=== PATIENT | female | born 1965 | race Caucasian/White ===

== ENCOUNTER 2017-01-12 14:24 | Inpatient (IN) | payer MEDICAID ==
[~2017-01-12] VITALS: Ht 157.5 cm; Wt 56.6 kg
[~2017-01-12 14:24] MED LIST: ASP81EC PO; ENA2.5T PO; FURO20TA3 PO; LORA2TAB10 PO; METO50TA7 PO; POTA20TA53 PO; SIMV10TA84 PO; SPIR25TA88 PO
[2017-01-12 16:18] LABS: Basophils # (auto) 0.1 uL; Basophils % (auto) 0.6 % (0.0-2.0); Eosinophils # (auto) 0.1 uL; Hematocrit 40.6 % (36.0-46.0); Hemoglobin 12.7 g/dL (12.2-16.2); Lymphocytes # (auto) 1.6 uL; Lymphocytes % (auto) 18.2 % (10.0-50.0); Mean Corpuscular Hemoglobin 27.9 pg (28.0-32.0); Mean Corpuscular Hgb Conc. 31.4 g/dL (32.0-36.0); Mean Corpuscular Volume 88.7 fL (80.0-100.0); Mean Platelet Volume 8.8 fL (7.4-10.4); Monocytes # (auto) 0.6 uL; Monocytes % (auto) 6.4 % (0.0-12.0); Neutrophils # (auto) 6.5 uL; Neutrophils % (auto) 73.8 % (37.0-80.0); Platelet Count (auto) 322 10^3/uL (140-450); Red Cell Distribution Width 17.6 % (11.6-16.0); White Blood Cell 8.8 10^3/uL (4.4-10.8)
[2017-01-12 16:49] LABS: Albumin 3.3 g/dL (3.4-5.0); BUN/Creatinine Ratio 21.7; Bilirubin, Total 0.7 mg/dL (0.2-1.0); Calcium 8.6 mg/dL (8.5-10.1); Potassium 4.2 mmol/L (3.5-5.1); Total Protein 7.1 g/dL (6.4-8.2)
[2017-01-12 22:53] LABS: B-Type Natriuretic Peptide 3648.64 pg/mL (0-100); Temperature: 22.9 C (20.0-25.0)
[2017-01-12] MEDS ORDERED: FUROSEMIDE 20 MG/2 ML VIAL IV ONE (23:15)
[2017-01-13 02:19] LABS: Urine RBC None Seen /hpf (0 - 4)
[2017-01-13 02:37] LABS: Urine Bilirubin Negative (Negative); Urine Blood Negative /uL (Negative); Urine Color Yellow (Yellow); Urine Glucose Normal (Normal); Urine Ketone Negative (Negative); Urine Nitrite Negative (Negative); Urine Squamous Epithelial Cell FEW /hpf (<5); Urine Urobilinogen Normal (Negative)
[2017-01-13] MEDS ORDERED: HYDROcodone-ACET 10/325MG TAB PO ONE (03:30)
[2017-01-13] MEDS ORDERED: CARV3.1213 PO ×2 (04:40)
[2017-01-13] MEDS ORDERED: SPIR25TA89 PO ×2 (04:40)
[2017-01-13] MEDS ORDERED: SIMV10TA84 PO ×2 (04:40)
[2017-01-13] MEDS ORDERED: POLY335015 PO ×2 (04:40)
[2017-01-13] MEDS ORDERED: FURO40TA4 PO ×2 (04:40)
[2017-01-13] MEDS ORDERED: ASPI81CH43 PO ×2 (04:40)
[2017-01-13] MEDS ORDERED: POTA10SO11 PO (04:40)
[2017-01-13] MEDS ORDERED: ENA2.5T PO (04:40)
[2017-01-13] MEDS ORDERED: CITA10TA70 PO ×2 (04:40)
[2017-01-13] MEDS ORDERED: ACETAMINOPHEN 500 MG TAB PO PRN (08:15)
[2017-01-13] MEDS ORDERED: MORPHINE SULF INJ 2 MG/ML SYRINGE 1ML IV PRN (08:15)
[2017-01-13] MEDS ORDERED: LORazepam 0.5 MG TAB PO PRN (08:15)
[2017-01-13] MEDS ORDERED: PROMETHAZINE HCL 25 MG/ML 1ML IV PRN (08:15)
[2017-01-13] MEDS ORDERED: LACTULOSE 20Gm/30ML SOLN PO PRN (08:15)
[2017-01-13] MEDS ORDERED: NITROGLYCERIN 0.4 MG SL TAB SL PRN (08:15)
[2017-01-13] MEDS ORDERED: DEXTROSE (50%) 50ML SYRG IV PRN (08:15)
[2017-01-13] MEDS ORDERED: cefTRIAXone 1GM/50ML D5W 50 ML IV ONE (08:15)
[2017-01-13] MEDS ORDERED: LORAZEPAM PO SCH (08:15)
[2017-01-13] MEDS ORDERED: POLYETHYLENE GLYCOL 17GM PWDR PO PRN (09:15)
[2017-01-13 09:22] LABS: Partial Thromboplastin Time 19.8 sec (22.64-33.71)
[2017-01-13 09:31] LABS: INR 1.22 (0.9-1.15); Prothrombin Time 12.6 sec (9.37-12.3)
[2017-01-13] MEDS: NITROGLYCERIN 0.2MG/HR TOPICAL PATCH TD SCH (10:49)
[2017-01-13] MEDS: SPIRONOLACTONE 25 MG TAB PO SCH (10:49)
[2017-01-13] MEDS: CITALOPRAM HYDROBR 20 MG TAB PO SCH (10:49)
[2017-01-13] MEDS: ASPirin 81 mg TAB PO SCH (10:49)
[2017-01-13] MEDS: ENALAPRIL MALEATE 2.5 MG TAB PO SCH (10:50)
[2017-01-13] MEDS: ENOXAPARIN SOD 40 MG/0.4 ML SYRINGE SC SCH (10:50)
[2017-01-13] MEDS: CARVEDILOL 3.125 MG TAB PO SCH ×2 (10:51→22:41)
[2017-01-13] MEDS: FAMOTIDINE 20 MG TAB PO SCH ×2 (10:51→22:41)
[2017-01-13] MEDS: POTASSIUM CHL 20 Meq TABLET PO SCH (10:51)
[2017-01-13] MEDS: FUROSEMIDE 40 MG/4 ML VIAL IV SCH (10:55)
[2017-01-13 11:22] LABS: Amylase 32 U/L (25-115)
[2017-01-13] MEDS: InsuLIN REG 1unit/0.01ml Soln (100units/ml) SC SCH ×3 (11:30→22:00)
[2017-01-13] MEDS: ACCU-CHEK COMFORT CURVE STRIP VI SCH ×3 (11:37→22:00)
[2017-01-13] MEDS: SODIUM CHLOR 0.9% PF (SALINE LOCK) 10ML VIAL IV SCH ×2 (13:23→22:42)
[2017-01-13 15:03] VITALS: BP 111/77
[2017-01-13 16:44] VITALS: BP 100/57
[2017-01-13 21:30] VITALS: BP 109/76
[2017-01-13] MEDS: HYDROcodone-ACET 5/325MG TAB PO PRN (22:41)
[2017-01-13] MEDS: PRAVASTATIN SODIUM 20 MG TAB PO SCH (22:41)
[2017-01-13] MEDS: TEMAZEPAM 15 MG CAP PO PRN (22:41)
[2017-01-14 05:37] VITALS: BP 109/74
[2017-01-14 06:09] LABS: Basophils # (auto) 0 uL; Basophils % (auto) 0.8 % (0.0-2.0); Eosinophils # (auto) 0.2 uL; Eosinophils % (auto) 2.7 % (0.0-7.0); Hematocrit 40.9 % (36.0-46.0); Hemoglobin 12.7 g/dL (12.2-16.2); Lymphocytes # (auto) 2.1 uL; Lymphocytes % (auto) 31.6 % (10.0-50.0); Mean Corpuscular Hemoglobin 27.3 pg (28.0-32.0); Monocytes # (auto) 0.6 uL; Monocytes % (auto) 8.6 % (0.0-12.0); Neutrophils # (auto) 3.7 uL; Neutrophils % (auto) 56.3 % (37.0-80.0); Platelet Count (auto) 308 10^3/uL (140-450); Red Cell Distribution Width 17.7 % (11.6-16.0); White Blood Cell 6.5 10^3/uL (4.4-10.8)
[2017-01-14 06:33] LABS: Albumin 2.9 g/dL (3.4-5.0); BUN/Creatinine Ratio 28.3; Bilirubin, Total 0.5 mg/dL (0.2-1.0); Calcium 8.5 mg/dL (8.5-10.1); Potassium 4.1 mmol/L (3.5-5.1); Total Protein 6.5 g/dL (6.4-8.2)
[2017-01-14] MEDS: ACCU-CHEK COMFORT CURVE STRIP VI SCH ×4 (06:59→22:00)
[2017-01-14] MEDS: InsuLIN REG 1unit/0.01ml Soln (100units/ml) SC SCH ×4 (06:59→22:00)
[2017-01-14 07:09] LABS: B-Type Natriuretic Peptide 2553.5 pg/mL (0-100); Temperature: 22.2 C (20.0-25.0)
[2017-01-14] MEDS: SODIUM CHLOR 0.9% PF (SALINE LOCK) 10ML VIAL IV SCH ×3 (07:21→22:15)
[2017-01-14] MEDS: cefTRIAXone 1GM/50ML D5W 50 ML IV SCH (08:26)
[2017-01-14 09:29] VITALS: BP 108/69
[2017-01-14] MEDS: FUROSEMIDE 40 MG/4 ML VIAL IV SCH (09:47)
[2017-01-14] MEDS: ASPirin 81 mg TAB PO SCH (09:47)
[2017-01-14] MEDS: SPIRONOLACTONE 25 MG TAB PO SCH (09:48)
[2017-01-14] MEDS: ENOXAPARIN SOD 40 MG/0.4 ML SYRINGE SC SCH ×2 (09:48→09:58)
[2017-01-14] MEDS: POTASSIUM CHL 20 Meq TABLET PO SCH (09:48)
[2017-01-14] MEDS: FAMOTIDINE 20 MG TAB PO SCH ×2 (09:48→22:11)
[2017-01-14] MEDS: CITALOPRAM HYDROBR 20 MG TAB PO SCH (09:49)
[2017-01-14] MEDS: CARVEDILOL 3.125 MG TAB PO SCH ×2 (09:51→22:15)
[2017-01-14] MEDS: ENALAPRIL MALEATE 2.5 MG TAB PO SCH (09:51)
[2017-01-14] MEDS: NITROGLYCERIN 0.2MG/HR TOPICAL PATCH TD SCH (09:52)
[2017-01-14 13:00] VITALS: BP 105/63
[2017-01-14 16:28] VITALS: BP 104/75
[2017-01-14] MEDS: MORPHINE SULF INJ 2 MG/ML SYRINGE 1ML IV PRN ×2 (17:24→22:25)
[2017-01-14 22:00] VITALS: BP 120/83
[2017-01-14] MEDS: PRAVASTATIN SODIUM 20 MG TAB PO SCH (22:11)
[2017-01-15 05:00] VITALS: BP 112/72
[2017-01-15] MEDS: SODIUM CHLOR 0.9% PF (SALINE LOCK) 10ML VIAL IV SCH ×3 (05:52→22:21)
[2017-01-15] MEDS: InsuLIN REG 1unit/0.01ml Soln (100units/ml) SC SCH ×4 (06:14→22:00)
[2017-01-15] MEDS: ACCU-CHEK COMFORT CURVE STRIP VI SCH ×4 (06:15→22:00)
[2017-01-15 09:00] VITALS: BP 115/81
[2017-01-15] MEDS: cefTRIAXone 1GM/50ML D5W 50 ML IV SCH (09:55)
[2017-01-15] MEDS: ENOXAPARIN SOD 40 MG/0.4 ML SYRINGE SC SCH (09:56)
[2017-01-15] MEDS: NITROGLYCERIN 0.2MG/HR TOPICAL PATCH TD SCH (09:56)
[2017-01-15] MEDS: CITALOPRAM HYDROBR 20 MG TAB PO SCH (09:56)
[2017-01-15] MEDS: POTASSIUM CHL 20 Meq TABLET PO SCH (09:56)
[2017-01-15] MEDS: FUROSEMIDE 40 MG/4 ML VIAL IV SCH (09:56)
[2017-01-15] MEDS: SPIRONOLACTONE 25 MG TAB PO SCH (09:57)
[2017-01-15] MEDS: ENALAPRIL MALEATE 2.5 MG TAB PO SCH (09:57)
[2017-01-15] MEDS: FAMOTIDINE 20 MG TAB PO SCH ×2 (09:57→22:18)
[2017-01-15] MEDS: ASPirin 81 mg TAB PO SCH (09:58)
[2017-01-15] MEDS: CARVEDILOL 3.125 MG TAB PO SCH ×2 (09:58→22:18)
[2017-01-15 13:00] VITALS: BP 99/66
[2017-01-15 17:00] VITALS: BP 121/81
[2017-01-15 22:00] VITALS: BP 118/64
[2017-01-15] MEDS: PRAVASTATIN SODIUM 20 MG TAB PO SCH (22:18)
[2017-01-15] MEDS: MORPHINE SULF INJ 2 MG/ML SYRINGE 1ML IV PRN (22:20)
[2017-01-16 05:00] VITALS: BP 108/65
[2017-01-16 06:22] LABS: Basophils # (auto) 0 uL; Basophils % (auto) 0.5 % (0.0-2.0); Eosinophils # (auto) 0.1 uL; Eosinophils % (auto) 1.5 % (0.0-7.0); Lymphocytes # (auto) 1.8 uL; Lymphocytes % (auto) 20.5 % (10.0-50.0); Mean Corpuscular Hemoglobin 27.4 pg (28.0-32.0); Mean Corpuscular Volume 88.4 fL (80.0-100.0); Monocytes # (auto) 0.8 uL; Monocytes % (auto) 8.8 % (0.0-12.0); Neutrophils # (auto) 6.2 uL; Neutrophils % (auto) 68.7 % (37.0-80.0); Platelet Count (auto) 346 10^3/uL (140-450); Red Cell Distribution Width 16.7 % (11.6-16.0)
[2017-01-16 06:59] LABS: Albumin 2.9 g/dL (3.4-5.0); Bilirubin, Total 0.3 mg/dL (0.2-1.0); Calcium 8.3 mg/dL (8.5-10.1); Potassium 4.3 mmol/L (3.5-5.1); Total Protein 6.6 g/dL (6.4-8.2)
[2017-01-16] MEDS: InsuLIN REG 1unit/0.01ml Soln (100units/ml) SC SCH ×4 (07:00→22:00)
[2017-01-16] MEDS: ACCU-CHEK COMFORT CURVE STRIP VI SCH ×4 (07:00→22:00)
[2017-01-16] MEDS: SODIUM CHLOR 0.9% PF (SALINE LOCK) 10ML VIAL IV SCH ×3 (07:02→22:00)
[2017-01-16] MEDS: Boost Glucose Control 8 Ounces PO SCH ×3 (08:00→18:00)
[2017-01-16 09:00] VITALS: BP 99/60
[2017-01-16] MEDS: SPIRONOLACTONE 25 MG TAB PO SCH (10:00)
[2017-01-16] MEDS: NITROGLYCERIN 0.2MG/HR TOPICAL PATCH TD SCH (10:00)
[2017-01-16] MEDS: ENALAPRIL MALEATE 2.5 MG TAB PO SCH (10:00)
[2017-01-16 10:14] VITALS: BP 104/69
[2017-01-16] MEDS: FAMOTIDINE 20 MG TAB PO SCH ×2 (10:22→22:56)
[2017-01-16] MEDS: CITALOPRAM HYDROBR 20 MG TAB PO SCH (10:22)
[2017-01-16] MEDS: ASPirin 81 mg TAB PO SCH (10:22)
[2017-01-16] MEDS: POTASSIUM CHL 20 Meq TABLET PO SCH (10:22)
[2017-01-16] MEDS: CARVEDILOL 3.125 MG TAB PO SCH ×2 (10:22→22:57)
[2017-01-16] MEDS: ENOXAPARIN SOD 40 MG/0.4 ML SYRINGE SC SCH (10:22)
[2017-01-16] MEDS: FUROSEMIDE 40 MG/4 ML VIAL IV SCH (10:23)
[2017-01-16] MEDS: cefTRIAXone 1GM/50ML D5W 50 ML IV SCH (10:23)
[2017-01-16 13:00] VITALS: BP 106/64
[2017-01-16 17:00] VITALS: BP 102/61
[2017-01-16 22:00] VITALS: BP 123/77
[2017-01-16] MEDS: TEMAZEPAM 15 MG CAP PO PRN (22:56)
[2017-01-16] MEDS: PRAVASTATIN SODIUM 20 MG TAB PO SCH (22:58)
[2017-01-17 05:00] VITALS: BP 123/79
[2017-01-17] MEDS: SODIUM CHLOR 0.9% PF (SALINE LOCK) 10ML VIAL IV SCH ×3 (06:00→21:38)
[2017-01-17 06:20] LABS: Basophils # (auto) 0 uL; Basophils % (auto) 0.4 % (0.0-2.0); Eosinophils # (auto) 0.2 uL; Eosinophils % (auto) 2.4 % (0.0-7.0); Hematocrit 42.1 % (36.0-46.0); Hemoglobin 13.9 g/dL (12.2-16.2); Lymphocytes # (auto) 2.3 uL; Lymphocytes % (auto) 24.6 % (10.0-50.0); Mean Corpuscular Hemoglobin 28.5 pg (28.0-32.0); Mean Corpuscular Hgb Conc. 32.9 g/dL (32.0-36.0); Mean Corpuscular Volume 86.7 fL (80.0-100.0); Mean Platelet Volume 8.8 fL (7.4-10.4); Monocytes # (auto) 0.8 uL; Monocytes % (auto) 8.7 % (0.0-12.0); Neutrophils % (auto) 63.9 % (37.0-80.0); Platelet Count (auto) 371 10^3/uL (140-450); Red Cell Distribution Width 16.9 % (11.6-16.0); White Blood Cell 9.4 10^3/uL (4.4-10.8)
[2017-01-17 06:33] LABS: INR 1.14 (0.9-1.15); Prothrombin Time 11.7 sec (9.37-12.3)
[2017-01-17 06:49] LABS: Potassium 4.1 mmol/L (3.5-5.1)
[2017-01-17 06:55] LABS: Calcium 8.3 mg/dL (8.5-10.1)
[2017-01-17 07:00] LABS: Bilirubin, Total 0.3 mg/dL (0.2-1.0); Total Protein 7.1 g/dL (6.4-8.2)
[2017-01-17] MEDS: InsuLIN REG 1unit/0.01ml Soln (100units/ml) SC SCH ×2 (07:00→11:30)
[2017-01-17] MEDS ORDERED: IODIXANOL 320MG/ML 100ML BTL IV ONE (07:15)
[2017-01-17] MEDS ORDERED: LIDOCAINE 2%HCL (LOCAL ANESTH.) INJ 20ML MDV ONE (07:15)
[2017-01-17] MEDS: ACCU-CHEK COMFORT CURVE STRIP VI SCH ×2 (07:49→11:30)
[2017-01-17] MEDS: Boost Glucose Control 8 Ounces PO SCH ×3 (08:00→18:00)
[2017-01-17 09:00] VITALS: BP 116/78
[2017-01-17] MEDS: ASPirin 81 mg TAB PO SCH (09:58)
[2017-01-17] MEDS: ENOXAPARIN SOD 40 MG/0.4 ML SYRINGE SC SCH (09:58)
[2017-01-17] MEDS: cefTRIAXone 1GM/50ML D5W 50 ML IV SCH (09:59)
[2017-01-17] MEDS: FUROSEMIDE 40 MG/4 ML VIAL IV SCH (09:59)
[2017-01-17] MEDS: SPIRONOLACTONE 25 MG TAB PO SCH (10:00)
[2017-01-17] MEDS: NITROGLYCERIN 0.2MG/HR TOPICAL PATCH TD SCH (10:00)
[2017-01-17] MEDS: POTASSIUM CHL 20 Meq TABLET PO SCH (10:00)
[2017-01-17] MEDS: ENALAPRIL MALEATE 2.5 MG TAB PO SCH (10:01)
[2017-01-17] MEDS: CARVEDILOL 3.125 MG TAB PO SCH ×2 (10:01→21:37)
[2017-01-17] MEDS: FAMOTIDINE 20 MG TAB PO SCH ×2 (10:01→21:38)
[2017-01-17] MEDS: CITALOPRAM HYDROBR 20 MG TAB PO SCH (10:01)
[2017-01-17] MEDS ORDERED: ANGIOMAX 250 MG VIAL IV ONE (11:15)
[2017-01-17] MEDS ORDERED: VERAPAMIL 2.5MG/ML INJ 2ML VIAL IV ONE (11:15)
[2017-01-17] MEDS ORDERED: MIDAZOLAM HCL 1MG/1ML-2 ML VIAL ONE (11:16)
[2017-01-17] MEDS ORDERED: fentaNYL CITRATE 100 MCG/2 ML VL ONE (11:16)
[2017-01-17] MEDS ORDERED: EPTIFIBATIDE INJ (2MG/ML) 10ML VIAL IV ONE (11:17)
[2017-01-17] MEDS ORDERED: SODIUM CHL 0.9% 50 ML ONE (11:17)
[2017-01-17] MEDS ORDERED: ADENOSINE 90 MG/30 ML INJ IV ONE (11:35)
[2017-01-17 13:00] VITALS: BP 107/75
[2017-01-17 17:00] VITALS: BP 105/57
[2017-01-17] MEDS: HYDROcodone-ACET 5/325MG TAB PO PRN (20:49)
[2017-01-17] MEDS: PRAVASTATIN SODIUM 20 MG TAB PO SCH (21:38)
[2017-01-17] MEDS: TEMAZEPAM 15 MG CAP PO PRN (21:38)
[2017-01-17 22:00] VITALS: BP 108/71
[2017-01-18 05:00] VITALS: BP 112/56
[2017-01-18] MEDS: SODIUM CHLOR 0.9% PF (SALINE LOCK) 10ML VIAL IV SCH ×2 (06:00→14:00)
[2017-01-18 06:29] LABS: BUN/Creatinine Ratio 27.7; Calcium 8.8 mg/dL (8.5-10.1); Potassium 4.2 mmol/L (3.5-5.1)
[2017-01-18 06:57] LABS: B-Type Natriuretic Peptide 1078.88 pg/mL (0-100); Temperature: 22.5 C (20.0-25.0)
[2017-01-18] MEDS: Boost Glucose Control 8 Ounces PO SCH ×2 (08:00→12:00)
[2017-01-18 09:00] VITALS: BP 105/71
[2017-01-18] MEDS ORDERED: ENA2.5T PO ×2 (09:12)
[2017-01-18] MEDS ORDERED: POTA20TA53 PO ×2 (09:20)
[2017-01-18] MEDS: FUROSEMIDE 40 MG/4 ML VIAL IV SCH (09:48)
[2017-01-18] MEDS: POTASSIUM CHL 20 Meq TABLET PO SCH (09:48)
[2017-01-18] MEDS: SPIRONOLACTONE 25 MG TAB PO SCH (09:48)
[2017-01-18] MEDS: CITALOPRAM HYDROBR 20 MG TAB PO SCH (09:48)
[2017-01-18] MEDS: FAMOTIDINE 20 MG TAB PO SCH (09:49)
[2017-01-18] MEDS: CARVEDILOL 3.125 MG TAB PO SCH (09:49)
[2017-01-18] MEDS: ASPirin 81 mg TAB PO SCH (09:49)
[2017-01-18] MEDS: ENOXAPARIN SOD 40 MG/0.4 ML SYRINGE SC SCH (09:50)
[2017-01-18] MEDS: NITROGLYCERIN 0.2MG/HR TOPICAL PATCH TD SCH (09:50)
[2017-01-18] MEDS: ENALAPRIL MALEATE 2.5 MG TAB PO SCH (09:50)
[2017-01-18 13:00] VITALS: BP 111/69
[2017-01-18 13:57] VITALS: BP 105/71
== END 2017-01-18 16:10 | disposition home or self-care (01) | DRG 190 ==
LOC: ER 14:25 → TELE 14:26 → TELE-E-ADS 01-13 11:26 → TELE-CENTR 01-13 12:06
PROVIDERS: ADMIT Internal Medicine; ATTEND Internal Medicine
PROC: 4A033BC Measurement of Arterial Pressure, Coronary, Percutaneous Approach (ICD-10-PCS; principal; 2017-01-17)
PROC: B2111ZZ Fluoroscopy of Multiple Coronary Arteries using Low Osmolar Contrast (ICD-10-PCS; 2017-01-17)
DX: I21.4 Non-ST elevation (NSTEMI) myocardial infarction (principal); I50.43 Acute on chronic combined systolic (congestive) and diastolic (congestive) heart failure; N17.9 Acute kidney failure, unspecified; I42.7 Cardiomyopathy due to drug and external agent; E44.0 Moderate protein-calorie malnutrition; E11.65 Type 2 diabetes mellitus with hyperglycemia; I11.0 Hypertensive heart disease with heart failure; N39.0 Urinary tract infection, site not specified; J44.9 Chronic obstructive pulmonary disease, unspecified; T40.7X5A Adverse effect of cannabis (derivatives), initial encounter; T43.625A Adverse effect of amphetamines, initial encounter; E78.5 Hyperlipidemia, unspecified; F17.210 Nicotine dependence, cigarettes, uncomplicated; I44.7 Left bundle-branch block, unspecified; I25.10 Atherosclerotic heart disease of native coronary artery without angina pectoris; Z82.49 Family history of ischemic heart disease and other diseases of the circulatory system; Z90.49 Acquired absence of other specified parts of digestive tract; Z98.51 Tubal ligation status; Z82.5 Family history of asthma and other chronic lower respiratory diseases; Z82.61 Family history of arthritis; Z83.2 Family history of diseases of the blood and blood-forming organs and certain disorders involving the immune mechanism; Y92.89 Other specified places as the place of occurrence of the external cause
CPT/HCPCS: 36415; 71010; 71020; 80048; 80053; 80061; 81001; 82150; 82550; 82962; 83036; 83690; 83880; 84443; 84484; 85025; 85379; 85610; 85652; 85730; 86141; 87040; 93005; 93306; 93454; C1887; G0434; J0153; J0696; J2250; Q9967

== ENCOUNTER 2017-01-20 01:39 | Inpatient (IN) | payer MEDICAID ==
[~2017-01-20] VITALS: Ht 170.2 cm; Wt 62.7 kg
[~2017-01-20 01:39] MED LIST changes: +ASPI81CH43 PO; +CARV3.1213 PO; +CITA10TA70 PO; +FURO40TA4 PO; +POLY335015 PO; +POTA10SO11 PO; +SPIR25TA89 PO
[2017-01-20 02:22] LABS: Basophils # (auto) 0 uL; Basophils % (auto) 0.2 % (0.0-2.0); Eosinophils # (auto) 0.1 uL; Eosinophils % (auto) 0.5 % (0.0-7.0); Hematocrit 44.4 % (36.0-46.0); Hemoglobin 14.7 g/dL (12.2-16.2); Lymphocytes # (auto) 1.4 uL; Lymphocytes % (auto) 9.9 % (10.0-50.0); Mean Corpuscular Hemoglobin 28.5 pg (28.0-32.0); Mean Corpuscular Hgb Conc. 33.1 g/dL (32.0-36.0); Mean Corpuscular Volume 85.9 fL (80.0-100.0); Mean Platelet Volume 8.5 fL (7.4-10.4); Monocytes # (auto) 0.9 uL; Monocytes % (auto) 6.1 % (0.0-12.0); Neutrophils # (auto) 11.9 uL; Neutrophils % (auto) 83.3 % (37.0-80.0); Platelet Count (auto) 386 10^3/uL (140-450); Red Cell Distribution Width 16.8 % (11.6-16.0); White Blood Cell 14.3 10^3/uL (4.4-10.8)
[2017-01-20 02:40] LABS: Albumin 3.6 g/dL (3.4-5.0); BUN/Creatinine Ratio 15.4; Potassium 3.9 mmol/L (3.5-5.1)
[2017-01-20 02:45] LABS: Bilirubin, Total 0.7 mg/dL (0.2-1.0)
[2017-01-20] MEDS ORDERED: SODIUM CHLORIDE 0.9% 1,000 ML IV ONE (07:26)
[2017-01-20] MEDS ORDERED: SODIUM CHLORIDE 0.9% 250 ML IV ONE (07:26)
[2017-01-20] MEDS ORDERED: metroNIDAZOLE 500MG/100ML 100 ML IV ONE (07:30)
[2017-01-20] MEDS ORDERED: PIPERACILLIN-TAZOB 3.375GM 100 ML IV ONE (07:30)
[2017-01-20] MEDS ORDERED: ENOXAPARIN SOD 120 MG/0.8 ML SYRINGE SC ONE (07:30)
[2017-01-20] MEDS ORDERED: ONDANSETRON HCL 4 MG/2 ML VIAL IV ONE (07:45)
[2017-01-20] MEDS ORDERED: MORPHINE SULF INJ 2 MG/ML SYRINGE 1ML IV ONE (07:45)
[2017-01-20] MEDS ORDERED: LORazepam 0.5 MG TAB PO PRN (08:00)
[2017-01-20] MEDS ORDERED: LACTULOSE 20Gm/30ML SOLN PO PRN (08:00)
[2017-01-20] MEDS ORDERED: NITROGLYCERIN 0.4 MG SL TAB SL PRN (08:00)
[2017-01-20] MEDS ORDERED: cefTRIAXone 1GM/50ML D5W 50 ML IV ONE (08:00)
[2017-01-20] MEDS ORDERED: ACETAMINOPHEN 500 MG TAB PO PRN (08:00)
[2017-01-20] MEDS ORDERED: MORPHINE SULF INJ 2 MG/ML SYRINGE 1ML IV PRN ×2 (08:00)
[2017-01-20] MEDS ORDERED: DEXTROSE (50%) 50ML SYRG IV PRN (08:00)
[2017-01-20] MEDS ORDERED: PROMETHAZINE HCL 25 MG/ML 1ML IV PRN (08:00)
[2017-01-20] MEDS ORDERED: TEMAZEPAM 15 MG CAP PO PRN (08:00)
[2017-01-20] MEDS: SODIUM CHLORIDE 0.9% 1,000 ML IV SCH ×2 (08:39→17:01)
[2017-01-20] MEDS: cefTRIAXone 1GM/50ML D5W 50 ML IV SCH (08:58)
[2017-01-20] MEDS: ENOXAPARIN SOD 40 MG/0.4 ML SYRINGE SC SCH (10:00)
[2017-01-20] MEDS: FAMOTIDINE 20 MG TAB PO SCH ×2 (10:09→21:52)
[2017-01-20] MEDS: ASPirin 81 mg TAB PO SCH (10:10)
[2017-01-20] MEDS ORDERED: HYOSCYAMINE SULF 0.125 MG TAB PO PRN (11:15)
[2017-01-20 11:17] VITALS: BP 115/83
[2017-01-20] MEDS: ACCU-CHEK COMFORT CURVE STRIP VI SCH ×2 (11:37→18:00)
[2017-01-20] MEDS: InsuLIN REG 1unit/0.01ml Soln (100units/ml) SC SCH ×2 (11:46→18:00)
[2017-01-20] MEDS: HYDROcodone-ACET 5/325MG TAB PO PRN (12:15)
[2017-01-20] MEDS: metroNIDAZOLE 500MG/100ML 100 ML IV SCH ×2 (12:38→17:49)
[2017-01-20 13:43] LABS: Urine Bilirubin Negative (Negative); Urine Blood Negative /uL (Negative); Urine Color Yellow (Yellow); Urine Glucose Normal (Normal); Urine Ketone Negative (Negative); Urine Nitrite Negative (Negative); Urine RBC <1 /hpf (0 - 4); Urine Squamous Epithelial Cell FEW /hpf (<5); Urine Urobilinogen Normal (Negative)
[2017-01-20 17:17] VITALS: BP 114/70
[2017-01-20 22:12] VITALS: BP 124/71
[2017-01-21] VITALS (7 sets, daily range): BP systolic 106–128; BP diastolic 68–90
[2017-01-21] MEDS: metroNIDAZOLE 500MG/100ML 100 ML IV SCH ×4 (01:50→17:39)
[2017-01-21] MEDS: SODIUM CHLORIDE 0.9% 1,000 ML IV SCH ×2 (03:51→16:34)
[2017-01-21] MEDS: ACCU-CHEK COMFORT CURVE STRIP VI SCH ×5 (06:00→17:42)
[2017-01-21] MEDS: InsuLIN REG 1unit/0.01ml Soln (100units/ml) SC SCH ×4 (06:00→17:42)
[2017-01-21 08:18] LABS: Basophils # (auto) 0 uL; Basophils % (auto) 0.6 % (0.0-2.0); Eosinophils # (auto) 0.1 uL; Eosinophils % (auto) 1.6 % (0.0-7.0); Hematocrit 38.3 % (36.0-46.0); Hemoglobin 12.5 g/dL (12.2-16.2); Lymphocytes # (auto) 1.8 uL; Lymphocytes % (auto) 19.9 % (10.0-50.0); Mean Corpuscular Hemoglobin 28.3 pg (28.0-32.0); Mean Corpuscular Hgb Conc. 32.5 g/dL (32.0-36.0); Mean Platelet Volume 8.8 fL (7.4-10.4); Monocytes # (auto) 0.8 uL; Monocytes % (auto) 9.1 % (0.0-12.0); Neutrophils # (auto) 6.1 uL; Neutrophils % (auto) 68.8 % (37.0-80.0); Platelet Count (auto) 303 10^3/uL (140-450); Red Cell Distribution Width 16.8 % (11.6-16.0); White Blood Cell 8.8 10^3/uL (4.4-10.8)
[2017-01-21 08:33] LABS: Albumin 3.1 g/dL (3.4-5.0); Amylase 38 U/L (25-115); BUN/Creatinine Ratio 23.6; Bilirubin, Total 0.8 mg/dL (0.2-1.0); Calcium 8.6 mg/dL (8.5-10.1); Total Protein 6.9 g/dL (6.4-8.2)
[2017-01-21] MEDS: FAMOTIDINE 20 MG TAB PO SCH ×2 (09:13→22:37)
[2017-01-21] MEDS: HYDROcodone-ACET 5/325MG TAB PO PRN ×2 (09:13→17:44)
[2017-01-21] MEDS: cefTRIAXone 1GM/50ML D5W 50 ML IV SCH (09:13)
[2017-01-21] MEDS: ASPirin 81 mg TAB PO SCH (09:13)
[2017-01-21] MEDS: ENOXAPARIN SOD 40 MG/0.4 ML SYRINGE SC SCH (10:00)
[2017-01-21] MEDS ORDERED: LEVOFLOXACIN 500MG 100 ML IV ONE (19:15)
[2017-01-22] MEDS: HYDROcodone-ACET 5/325MG TAB PO PRN ×2 (02:05→08:50)
[2017-01-22 04:50] VITALS: BP 128/81
[2017-01-22] MEDS: ACCU-CHEK COMFORT CURVE STRIP VI SCH ×2 (06:00)
[2017-01-22] MEDS: InsuLIN REG 1unit/0.01ml Soln (100units/ml) SC SCH ×2 (06:00)
[2017-01-22 09:00] VITALS: BP 128/92
[2017-01-22] MEDS ORDERED: LEVOFLOXACIN 500MG 100 ML IV SCH (10:00)
[2017-01-22] MEDS: ENOXAPARIN SOD 40 MG/0.4 ML SYRINGE SC SCH (10:00)
[2017-01-22] MEDS: ASPirin 81 mg TAB PO SCH (10:07)
[2017-01-22] MEDS: FAMOTIDINE 20 MG TAB PO SCH (10:07)
[2017-01-22 13:18] VITALS: BP 128/92
== END 2017-01-22 14:00 | disposition home or self-care (01) | DRG 249 ==
LOC: ER 01:53 → TELE 01:54 → TELE-E-ADS 09:27 → TELE-CENTR 11:15
PROVIDERS: ADMIT Internal Medicine; ATTEND Internal Medicine Pulmonary Disease
DX: K52.9 Noninfective gastroenteritis and colitis, unspecified (principal); I11.0 Hypertensive heart disease with heart failure; I50.9 Heart failure, unspecified; N39.0 Urinary tract infection, site not specified; J44.9 Chronic obstructive pulmonary disease, unspecified; D72.825 Bandemia; E11.9 Type 2 diabetes mellitus without complications; F12.90 Cannabis use, unspecified, uncomplicated; F17.210 Nicotine dependence, cigarettes, uncomplicated; F15.90 Other stimulant use, unspecified, uncomplicated; I25.10 Atherosclerotic heart disease of native coronary artery without angina pectoris; I44.7 Left bundle-branch block, unspecified; K57.30 Diverticulosis of large intestine without perforation or abscess without bleeding; E78.5 Hyperlipidemia, unspecified; K59.01 Slow transit constipation; I25.2 Old myocardial infarction; Z82.49 Family history of ischemic heart disease and other diseases of the circulatory system; Z82.5 Family history of asthma and other chronic lower respiratory diseases; Z83.2 Family history of diseases of the blood and blood-forming organs and certain disorders involving the immune mechanism; Z98.51 Tubal ligation status; Z90.49 Acquired absence of other specified parts of digestive tract; Z82.61 Family history of arthritis; Z71.51 Drug abuse counseling and surveillance of drug abuser
CPT/HCPCS: 36415; 71010; 74176; 80053; 81001; 82150; 82550; 82962; 83036; 83605; 83690; 84484; 85025; 85652; 86141; 87040; 87086; 87088; 87186; 93005; 96361; 96365; 96372; 96375; G0434; J0696; J1956; J2405; J2543; J3490

== ENCOUNTER 2017-01-27 19:08 | Inpatient (IN) | payer MEDICAID ==
[~2017-01-27] VITALS: Ht 157.5 cm; Wt 65.7 kg
[~2017-01-27 19:08] MED LIST changes: -ASP81EC PO; -FURO20TA3 PO; -METO50TA7 PO; -POTA10SO11 PO; -SPIR25TA88 PO
[2017-01-27 20:00] LABS: Basophils # (auto) 0.1 uL; Basophils % (auto) 0.7 % (0.0-2.0); Eosinophils # (auto) 0 uL; Eosinophils % (auto) 0.2 % (0.0-7.0); Hematocrit 40.3 % (36.0-46.0); Hemoglobin 12.9 g/dL (12.2-16.2); Lymphocytes # (auto) 1.7 uL; Lymphocytes % (auto) 14.4 % (10.0-50.0); Mean Corpuscular Hgb Conc. 32.1 g/dL (32.0-36.0); Mean Corpuscular Volume 87.2 fL (80.0-100.0); Mean Platelet Volume 9.1 fL (7.4-10.4); Monocytes # (auto) 1.2 uL; Monocytes % (auto) 9.8 % (0.0-12.0); Neutrophils # (auto) 8.9 uL; Neutrophils % (auto) 74.9 % (37.0-80.0); Platelet Count (auto) 387 10^3/uL (140-450); Red Cell Distribution Width 17.1 % (11.6-16.0); White Blood Cell 11.9 10^3/uL (4.4-10.8)
[2017-01-27 20:14] LABS: Albumin 2.9 g/dL (3.4-5.0); BUN/Creatinine Ratio 21.3; Magnesium 2.1 mg/dL (1.6-2.6); Potassium 3.9 mmol/L (3.5-5.1)
[2017-01-27 20:20] LABS: Bilirubin, Total 0.7 mg/dL (0.2-1.0); Total Protein 6.7 g/dL (6.4-8.2)
[2017-01-27] MEDS ORDERED: IOHEXOL 300 MG/ML 100ML BOTTLE IJ ONE (22:26)
[2017-01-27] MEDS ORDERED: SODIUM CHLORIDE 0.9% 1,000 ML IV ONE (22:30)
[2017-01-28 01:14] LABS: Urine Bilirubin Negative (Negative); Urine Blood Negative /uL (Negative); Urine Color Yellow (Yellow); Urine Glucose Normal (Normal); Urine Ketone Negative (Negative); Urine Nitrite Negative (Negative); Urine RBC <1 /hpf (0 - 4); Urine Squamous Epithelial Cell FEW /hpf (<5); Urine Urobilinogen Normal (Negative)
[2017-01-28] MEDS ORDERED: LORazepam 0.5 MG TAB PO PRN (01:30)
[2017-01-28] MEDS ORDERED: FUROSEMIDE 40 MG/4 ML VIAL IV ONE (01:30)
[2017-01-28] MEDS ORDERED: NITROGLYCERIN 0.4 MG SL TAB SL PRN (01:45)
[2017-01-28] MEDS ORDERED: MORPHINE SULF INJ 2 MG/ML SYRINGE 1ML IV PRN (01:45)
[2017-01-28] MEDS ORDERED: LACTULOSE 20Gm/30ML SOLN PO PRN (01:45)
[2017-01-28 01:55] LABS: B-Type Natriuretic Peptide 2557.65 pg/mL (0-100); Temperature: 21.4 C (20.0-25.0)
[2017-01-28] MEDS ORDERED: cefTRIAXone 1GM/50ML D5W 50 ML IV ONE (02:00)
[2017-01-28] MEDS: ONDANSETRON HCL 4 MG/2 ML VIAL IV PRN (02:32)
[2017-01-28] MEDS: MORPHINE SULFATE 4 MG/ML SYRG IV PRN ×2 (02:32→16:46)
[2017-01-28 05:31] VITALS: BP 127/89
[2017-01-28] MEDS: SODIUM CHLOR 0.9% PF (SALINE LOCK) 10ML VIAL IV SCH ×3 (06:43→21:35)
[2017-01-28 08:00] VITALS: BP 120/72
[2017-01-28 09:39] VITALS: BP 120/72
[2017-01-28] MEDS ORDERED: ENALAPRIL MALEATE 10 MG TAB PO SCH (10:00)
[2017-01-28] MEDS ORDERED: ASPirin 81 mg TAB PO SCH (10:00)
[2017-01-28] MEDS ORDERED: ENOXAPARIN SOD 30 MG/0.3 ML SYRINGE SC SCH (10:00)
[2017-01-28] MEDS ORDERED: PANTOPRAZOLE SODIUM 40 MG/10 ML VIAL IV SCH (10:00)
[2017-01-28] MEDS: CITALOPRAM HYDROBR 20 MG TAB PO SCH (10:23)
[2017-01-28] MEDS: POTASSIUM CHL 20 Meq TABLET PO SCH (10:25)
[2017-01-28] MEDS: ASPirin 81 mg TAB PO SCH (10:25)
[2017-01-28] MEDS: CARVEDILOL 3.125 MG TAB PO SCH ×2 (10:26→21:35)
[2017-01-28] MEDS: ENOXAPARIN SOD 40 MG/0.4 ML SYRINGE SC SCH (10:27)
[2017-01-28] MEDS: SPIRONOLACTONE 25 MG TAB PO SCH (10:27)
[2017-01-28] MEDS: FUROSEMIDE 40 MG/4 ML VIAL IV SCH (10:28)
[2017-01-28 13:00] VITALS: BP 109/79
[2017-01-28 17:15] VITALS: BP 117/80
[2017-01-28] MEDS: cefTRIAXone 1GM/50ML D5W 50 ML IV SCH (21:34)
[2017-01-28 21:45] VITALS: BP 110/81
[2017-01-28] MEDS ORDERED: ATORVASTATIN 20 MG TAB PO SCH (22:00)
[2017-01-29 04:52] VITALS: BP 102/72
[2017-01-29] MEDS: ONDANSETRON HCL 4 MG/2 ML VIAL IV PRN (05:44)
[2017-01-29] MEDS: SODIUM CHLOR 0.9% PF (SALINE LOCK) 10ML VIAL IV SCH ×3 (05:44→22:00)
[2017-01-29 05:51] LABS: Basophils # (auto) 0 uL; Basophils % (auto) 0.3 % (0.0-2.0); Eosinophils # (auto) 0 uL; Eosinophils % (auto) 0.2 % (0.0-7.0); Hematocrit 37.8 % (36.0-46.0); Hemoglobin 12.1 g/dL (12.2-16.2); Lymphocytes # (auto) 1.7 uL; Lymphocytes % (auto) 17.4 % (10.0-50.0); Mean Corpuscular Hemoglobin 27.8 pg (28.0-32.0); Mean Corpuscular Hgb Conc. 32.1 g/dL (32.0-36.0); Mean Corpuscular Volume 86.7 fL (80.0-100.0); Mean Platelet Volume 8.9 fL (7.4-10.4); Monocytes # (auto) 1.3 uL; Monocytes % (auto) 13.1 % (0.0-12.0); Neutrophils # (auto) 6.9 uL; Platelet Count (auto) 387 10^3/uL (140-450); Red Cell Distribution Width 17.6 % (11.6-16.0); White Blood Cell 9.9 10^3/uL (4.4-10.8)
[2017-01-29 06:38] LABS: Albumin 2.7 g/dL (3.4-5.0); BUN/Creatinine Ratio 22.3; Bilirubin, Total 0.5 mg/dL (0.2-1.0); Calcium 8.3 mg/dL (8.5-10.1); Magnesium 2.3 mg/dL (1.6-2.6); Phosphorus 2.7 mg/dL (2.5-4.90); Potassium 4.5 mmol/L (3.5-5.1); Total Protein 6.2 g/dL (6.4-8.2)
[2017-01-29 08:00] VITALS: BP 110/83
[2017-01-29] MEDS: ENALAPRIL MALEATE 2.5 MG TAB PO SCH (10:00)
[2017-01-29] MEDS: CARVEDILOL 3.125 MG TAB PO SCH ×2 (10:00→21:53)
[2017-01-29] MEDS: CITALOPRAM HYDROBR 20 MG TAB PO SCH (10:04)
[2017-01-29] MEDS: POTASSIUM CHL 20 Meq TABLET PO SCH (10:04)
[2017-01-29] MEDS: ASPirin 81 mg TAB PO SCH (10:05)
[2017-01-29] MEDS: ENOXAPARIN SOD 40 MG/0.4 ML SYRINGE SC SCH (10:05)
[2017-01-29] MEDS: SPIRONOLACTONE 25 MG TAB PO SCH (10:05)
[2017-01-29] MEDS: MORPHINE SULFATE 4 MG/ML SYRG IV PRN ×2 (10:05→20:09)
[2017-01-29] MEDS: FUROSEMIDE 40 MG/4 ML VIAL IV SCH (10:06)
[2017-01-29 13:00] VITALS: BP 102/74
[2017-01-29 17:00] VITALS: BP 104/68
[2017-01-29 20:00] VITALS: BP 103/74
[2017-01-29] MEDS: cefTRIAXone 1GM/50ML D5W 50 ML IV SCH (21:52)
[2017-01-29 22:00] VITALS: BP 103/74
[2017-01-30 05:00] VITALS: BP 99/71
[2017-01-30 06:03] LABS: Basophils # (auto) 0 uL; Basophils % (auto) 0.4 % (0.0-2.0); Eosinophils # (auto) 0.1 uL; Eosinophils % (auto) 0.6 % (0.0-7.0); Hematocrit 37.7 % (36.0-46.0); Hemoglobin 12.1 g/dL (12.2-16.2); Lymphocytes # (auto) 1.6 uL; Lymphocytes % (auto) 15.8 % (10.0-50.0); Mean Corpuscular Hgb Conc. 32.2 g/dL (32.0-36.0); Mean Corpuscular Volume 86.9 fL (80.0-100.0); Monocytes # (auto) 1.2 uL; Monocytes % (auto) 12.2 % (0.0-12.0); Neutrophils # (auto) 7.1 uL; Platelet Count (auto) 381 10^3/uL (140-450); Red Cell Distribution Width 17.4 % (11.6-16.0)
[2017-01-30] MEDS: SODIUM CHLOR 0.9% PF (SALINE LOCK) 10ML VIAL IV SCH ×3 (06:10→21:35)
[2017-01-30 06:16] LABS: INR 1.91 (0.9-1.15); Prothrombin Time 19.7 sec (9.37-12.3)
[2017-01-30 06:27] LABS: Albumin 2.6 g/dL (3.4-5.0); BUN/Creatinine Ratio 24.5; Calcium 7.4 mg/dL (8.5-10.1); Potassium 4.4 mmol/L (3.5-5.1)
[2017-01-30 06:29] LABS: Bilirubin, Total 0.7 mg/dL (0.2-1.0); Total Protein 5.9 g/dL (6.4-8.2)
[2017-01-30 09:00] VITALS: BP 123/67
[2017-01-30] MEDS: CITALOPRAM HYDROBR 20 MG TAB PO SCH (09:31)
[2017-01-30] MEDS: POTASSIUM CHLORIDE 8 MEQ TAB PO SCH (09:31)
[2017-01-30] MEDS: SPIRONOLACTONE 25 MG TAB PO SCH (09:31)
[2017-01-30] MEDS: CARVEDILOL 3.125 MG TAB PO SCH ×2 (09:32→21:41)
[2017-01-30] MEDS: ASPirin 81 mg TAB PO SCH (09:32)
[2017-01-30] MEDS: ENOXAPARIN SOD 40 MG/0.4 ML SYRINGE SC SCH (09:33)
[2017-01-30] MEDS: ENALAPRIL MALEATE 2.5 MG TAB PO SCH (09:33)
[2017-01-30] MEDS: FUROSEMIDE 40 MG/4 ML VIAL IV SCH (09:33)
[2017-01-30] MEDS: ONDANSETRON HCL 4 MG/2 ML VIAL IV PRN (09:50)
[2017-01-30] MEDS: MORPHINE SULFATE 4 MG/ML SYRG IV PRN ×2 (09:51→20:09)
[2017-01-30 13:00] VITALS: BP 99/67
[2017-01-30 16:59] VITALS: BP 121/78
[2017-01-30 20:00] VITALS: BP 110/73
[2017-01-30] MEDS: cefTRIAXone 1GM/50ML D5W 50 ML IV SCH (21:35)
[2017-01-30 22:41] VITALS: BP 110/73
[2017-01-31] MEDS: MORPHINE SULFATE 4 MG/ML SYRG IV PRN ×4 (01:14→21:08)
[2017-01-31] MEDS: SODIUM CHLOR 0.9% PF (SALINE LOCK) 10ML VIAL IV SCH ×3 (05:32→21:50)
[2017-01-31 05:49] VITALS: BP 92/51
[2017-01-31 06:18] LABS: Basophils # (auto) 0 uL; Basophils % (auto) 0.4 % (0.0-2.0); Eosinophils # (auto) 0.1 uL; Eosinophils % (auto) 0.9 % (0.0-7.0); Hematocrit 36.6 % (36.0-46.0); Hemoglobin 11.9 g/dL (12.2-16.2); Lymphocytes # (auto) 1.9 uL; Lymphocytes % (auto) 20.1 % (10.0-50.0); Mean Corpuscular Hemoglobin 27.8 pg (28.0-32.0); Mean Corpuscular Hgb Conc. 32.4 g/dL (32.0-36.0); Mean Corpuscular Volume 85.7 fL (80.0-100.0); Mean Platelet Volume 8.9 fL (7.4-10.4); Monocytes # (auto) 1.1 uL; Neutrophils # (auto) 6.5 uL; Neutrophils % (auto) 67.6 % (37.0-80.0); Platelet Count (auto) 393 10^3/uL (140-450); Red Cell Distribution Width 16.9 % (11.6-16.0); White Blood Cell 9.6 10^3/uL (4.4-10.8)
[2017-01-31 06:44] LABS: INR 1.69 (0.9-1.15); Potassium 4.3 mmol/L (3.5-5.1); Prothrombin Time 17.4 sec (9.37-12.3)
[2017-01-31 07:00] LABS: BUN/Creatinine Ratio 26.3; Calcium 7.9 mg/dL (8.5-10.1); Magnesium 2.2 mg/dL (1.6-2.6)
[2017-01-31 08:59] VITALS: BP 103/59
[2017-01-31] MEDS: CITALOPRAM HYDROBR 20 MG TAB PO SCH (09:23)
[2017-01-31] MEDS: SPIRONOLACTONE 25 MG TAB PO SCH (09:23)
[2017-01-31] MEDS: ASPirin 81 mg TAB PO SCH (09:24)
[2017-01-31] MEDS: ENOXAPARIN SOD 40 MG/0.4 ML SYRINGE SC SCH (09:25)
[2017-01-31] MEDS: POTASSIUM CHLORIDE 8 MEQ TAB PO SCH (09:26)
[2017-01-31] MEDS: FUROSEMIDE 40 MG/4 ML VIAL IV SCH (09:31)
[2017-01-31] MEDS: CARVEDILOL 3.125 MG TAB PO SCH ×2 (09:34→21:51)
[2017-01-31] MEDS: ENALAPRIL MALEATE 2.5 MG TAB PO SCH (09:35)
[2017-01-31 12:14] VITALS: BP 99/57
[2017-01-31 12:33] LABS: Hepatitis B Surface Antibody Negative
[2017-01-31 14:35] LABS: Albumin 2.8 g/dL (3.4-5.0); Bilirubin, Total 0.6 mg/dL (0.2-1.0); Total Protein 6.4 g/dL (6.4-8.2)
[2017-01-31 14:40] LABS: Bilirubin, Direct 0.4 mg/dL (0-0.2)
[2017-01-31 17:10] VITALS: BP 107/66
[2017-01-31 21:30] VITALS: BP 101/74
[2017-01-31] MEDS: cefTRIAXone 1GM/50ML D5W 50 ML IV SCH (21:50)
[2017-02-01] VITALS (11 sets, daily range): BP systolic 103–117; BP diastolic 53–77
[2017-02-01] MEDS: SODIUM CHLOR 0.9% PF (SALINE LOCK) 10ML VIAL IV SCH ×3 (05:39→21:59)
[2017-02-01] MEDS: MORPHINE SULFATE 4 MG/ML SYRG IV PRN ×3 (05:39→20:14)
[2017-02-01 07:24] LABS: Basophils # (auto) 0 uL; Basophils % (auto) 0.5 % (0.0-2.0); Eosinophils # (auto) 0.1 uL; Eosinophils % (auto) 0.6 % (0.0-7.0); Hematocrit 37.7 % (36.0-46.0); Hemoglobin 12.1 g/dL (12.2-16.2); Lymphocytes # (auto) 1.8 uL; Mean Corpuscular Hemoglobin 27.6 pg (28.0-32.0); Mean Corpuscular Hgb Conc. 32.1 g/dL (32.0-36.0); Mean Platelet Volume 8.9 fL (7.4-10.4); Monocytes # (auto) 1.1 uL; Monocytes % (auto) 11.4 % (0.0-12.0); Neutrophils # (auto) 6.4 uL; Neutrophils % (auto) 68.5 % (37.0-80.0); Platelet Count (auto) 427 10^3/uL (140-450); Red Cell Distribution Width 17.4 % (11.6-16.0); White Blood Cell 9.3 10^3/uL (4.4-10.8)
[2017-02-01 07:50] LABS: Albumin 2.8 g/dL (3.4-5.0); BUN/Creatinine Ratio 25.3; Bilirubin, Total 0.8 mg/dL (0.2-1.0); Total Protein 6.3 g/dL (6.4-8.2)
[2017-02-01] MEDS ORDERED: fentaNYL CITRATE 100 MCG/2 ML VL ONE (08:46)
[2017-02-01] MEDS ORDERED: MIDAZOLAM HCL 1MG/1ML-2 ML VIAL ONE (09:05)
[2017-02-01] MEDS: CARVEDILOL 3.125 MG TAB PO SCH ×2 (10:00→21:59)
[2017-02-01] MEDS: ENALAPRIL MALEATE 2.5 MG TAB PO SCH (10:00)
[2017-02-01] MEDS: FUROSEMIDE 40 MG/4 ML VIAL IV SCH (10:00)
[2017-02-01] MEDS: CITALOPRAM HYDROBR 20 MG TAB PO SCH (10:24)
[2017-02-01] MEDS: ENOXAPARIN SOD 40 MG/0.4 ML SYRINGE SC SCH (10:24)
[2017-02-01] MEDS: ASPirin 81 mg TAB PO SCH (10:25)
[2017-02-01] MEDS: POTASSIUM CHLORIDE 8 MEQ TAB PO SCH (10:25)
[2017-02-01] MEDS: SPIRONOLACTONE 25 MG TAB PO SCH (10:25)
[2017-02-01 20:41] LABS: Body Fluid Polymorphonuclear 52 %
[2017-02-01] MEDS: cefTRIAXone 1GM/50ML D5W 50 ML IV SCH (21:59)
[2017-02-02] MEDS: MORPHINE SULFATE 4 MG/ML SYRG IV PRN ×5 (00:51→19:44)
[2017-02-02 02:07] LABS: Ceruloplasmin 49.8 mg/dL (19.0-39.0)
[2017-02-02 05:33] VITALS: BP 103/71
[2017-02-02] MEDS: SODIUM CHLOR 0.9% PF (SALINE LOCK) 10ML VIAL IV SCH ×3 (06:06→21:50)
[2017-02-02 07:20] LABS: Basophils # (auto) 0 uL; Basophils % (auto) 0.3 % (0.0-2.0); Eosinophils # (auto) 0.1 uL; Eosinophils % (auto) 0.6 % (0.0-7.0); Hematocrit 35.9 % (36.0-46.0); Hemoglobin 11.4 g/dL (12.2-16.2); Lymphocytes # (auto) 1.4 uL; Lymphocytes % (auto) 13.5 % (10.0-50.0); Mean Corpuscular Hemoglobin 27.3 pg (28.0-32.0); Mean Corpuscular Hgb Conc. 31.9 g/dL (32.0-36.0); Mean Corpuscular Volume 85.7 fL (80.0-100.0); Mean Platelet Volume 8.9 fL (7.4-10.4); Monocytes # (auto) 1.2 uL; Monocytes % (auto) 11.8 % (0.0-12.0); Neutrophils # (auto) 7.5 uL; Neutrophils % (auto) 73.8 % (37.0-80.0); Platelet Count (auto) 444 10^3/uL (140-450); Red Cell Distribution Width 17.4 % (11.6-16.0); White Blood Cell 10.1 10^3/uL (4.4-10.8)
[2017-02-02 07:50] LABS: Albumin 2.6 g/dL (3.4-5.0); BUN/Creatinine Ratio 21.1; Bilirubin, Total 0.7 mg/dL (0.2-1.0); Calcium 8.1 mg/dL (8.5-10.1); Potassium 4.5 mmol/L (3.5-5.1); Total Protein 6.1 g/dL (6.4-8.2)
[2017-02-02 09:00] VITALS: BP 109/69
[2017-02-02] MEDS: CARVEDILOL 3.125 MG TAB PO SCH ×2 (09:50→21:51)
[2017-02-02] MEDS: FUROSEMIDE 40 MG/4 ML VIAL IV SCH (09:50)
[2017-02-02] MEDS: CITALOPRAM HYDROBR 20 MG TAB PO SCH (09:50)
[2017-02-02] MEDS: SPIRONOLACTONE 25 MG TAB PO SCH (09:50)
[2017-02-02] MEDS: ASPirin 81 mg TAB PO SCH (09:50)
[2017-02-02] MEDS: ENALAPRIL MALEATE 2.5 MG TAB PO SCH (09:51)
[2017-02-02] MEDS: ENOXAPARIN SOD 40 MG/0.4 ML SYRINGE SC SCH (09:51)
[2017-02-02] MEDS: POTASSIUM CHLORIDE 8 MEQ TAB PO SCH (09:51)
[2017-02-02 13:00] VITALS: BP 109/67
[2017-02-02 17:00] VITALS: BP 111/68
[2017-02-02] MEDS: BOOST PLUS 8 ounce PO SCH ×2 (17:25→21:50)
[2017-02-02] MEDS: cefTRIAXone 1GM/50ML D5W 50 ML IV SCH (21:50)
[2017-02-02 22:00] VITALS: BP 105/69
[2017-02-03] MEDS: MORPHINE SULFATE 4 MG/ML SYRG IV PRN ×2 (01:32→10:20)
[2017-02-03 05:45] VITALS: BP 102/68
[2017-02-03] MEDS: SODIUM CHLOR 0.9% PF (SALINE LOCK) 10ML VIAL IV SCH ×2 (06:03→14:03)
[2017-02-03] MEDS: BOOST PLUS 8 ounce PO SCH ×2 (06:04→12:01)
[2017-02-03 07:07] LABS: Basophils # (auto) 0 uL; Basophils % (auto) 0.5 % (0.0-2.0); Eosinophils # (auto) 0.1 uL; Eosinophils % (auto) 1.4 % (0.0-7.0); Hematocrit 34.6 % (36.0-46.0); Hemoglobin 11.2 g/dL (12.2-16.2); Lymphocytes % (auto) 22.8 % (10.0-50.0); Mean Corpuscular Hemoglobin 27.4 pg (28.0-32.0); Mean Corpuscular Hgb Conc. 32.3 g/dL (32.0-36.0); Mean Corpuscular Volume 84.8 fL (80.0-100.0); Mean Platelet Volume 8.7 fL (7.4-10.4); Monocytes # (auto) 1.2 uL; Monocytes % (auto) 14.2 % (0.0-12.0); Neutrophils # (auto) 5.3 uL; Neutrophils % (auto) 61.1 % (37.0-80.0); Platelet Count (auto) 401 10^3/uL (140-450); Red Cell Distribution Width 17.6 % (11.6-16.0); White Blood Cell 8.6 10^3/uL (4.4-10.8)
[2017-02-03 07:18] LABS: Calcium 7.6 mg/dL (8.5-10.1); Potassium 4.6 mmol/L (3.5-5.1)
[2017-02-03 07:22] LABS: Albumin 2.4 g/dL (3.4-5.0); BUN/Creatinine Ratio 18.3
[2017-02-03 07:25] LABS: Bilirubin, Total 0.7 mg/dL (0.2-1.0); Total Protein 6.2 g/dL (6.4-8.2)
[2017-02-03 09:00] VITALS: BP 118/74
[2017-02-03] MEDS: FUROSEMIDE 40 MG/4 ML VIAL IV SCH (09:39)
[2017-02-03] MEDS: ASPirin 81 mg TAB PO SCH (09:39)
[2017-02-03] MEDS: SPIRONOLACTONE 25 MG TAB PO SCH (09:39)
[2017-02-03] MEDS: CITALOPRAM HYDROBR 20 MG TAB PO SCH (09:39)
[2017-02-03] MEDS: CARVEDILOL 3.125 MG TAB PO SCH ×2 (09:40→12:21)
[2017-02-03] MEDS: POTASSIUM CHLORIDE 8 MEQ TAB PO SCH (09:40)
[2017-02-03] MEDS: ENALAPRIL MALEATE 2.5 MG TAB PO SCH (09:41)
[2017-02-03] MEDS: ENOXAPARIN SOD 40 MG/0.4 ML SYRINGE SC SCH (10:00)
[2017-02-03 13:00] VITALS: BP 111/67
[2017-02-03 15:47] VITALS: BP 111/67
== END 2017-02-03 17:45 | disposition home or self-care (01) | DRG 952 ==
LOC: EDBD 19:08 → ER 19:20 → TELE 19:21 → TELE-EAST 01-28 02:50
PROVIDERS: ADMIT Family Medicine; ATTEND Internal Medicine
PROC: 0FB03ZX Excision of Liver, Percutaneous Approach, Diagnostic (ICD-10-PCS; principal; 2017-02-01)
PROC: 0W9G3ZX Drainage of Peritoneal Cavity, Percutaneous Approach, Diagnostic (ICD-10-PCS; 2017-02-01)
DX: I11.0 Hypertensive heart disease with heart failure (principal); E43 Unspecified severe protein-calorie malnutrition; D68.9 Coagulation defect, unspecified; R18.8 Other ascites; I42.9 Cardiomyopathy, unspecified; E87.1 Hypo-osmolality and hyponatremia; K76.1 Chronic passive congestion of liver; J44.9 Chronic obstructive pulmonary disease, unspecified; I50.43 Acute on chronic combined systolic (congestive) and diastolic (congestive) heart failure; E11.9 Type 2 diabetes mellitus without complications; E78.5 Hyperlipidemia, unspecified; F12.90 Cannabis use, unspecified, uncomplicated; F15.10 Other stimulant abuse, uncomplicated; K59.00 Constipation, unspecified; F41.9 Anxiety disorder, unspecified; I25.10 Atherosclerotic heart disease of native coronary artery without angina pectoris; B17.9 Acute viral hepatitis, unspecified; F17.210 Nicotine dependence, cigarettes, uncomplicated; F32.9 Major depressive disorder, single episode, unspecified; I25.2 Old myocardial infarction; Z91.19 Patient's noncompliance with other medical treatment and regimen; Z79.82 Long term (current) use of aspirin; Z79.899 Other long term (current) drug therapy; Z90.49 Acquired absence of other specified parts of digestive tract; Z98.51 Tubal ligation status; Z68.26 Body mass index [BMI] 26.0-26.9, adult
CPT/HCPCS: 36415; 74177; 76705; 76942; 80048; 80053; 80061; 80076; 81001; 82150; 82390; 83540; 83550; 83690; 83735; 83880; 83986; 84100; 84484; 85025; 85610; 86704; 86706; 86708; 86803; 87040; 87081; 87086; 87205; 87340; 88307; 88341; 89051; 93005; 94761; 96361; 96365; 96375; C9113; G0434; J0696; J2250; J2405

== ENCOUNTER → 2017-02-15 | Outpatient (CLI) | payer MEDICAID ==
[2017-02-15 15:00] LABS: Albumin 3.3 g/dL (3.4-5.0); BUN/Creatinine Ratio 19.8; Calcium 8.7 mg/dL (8.5-10.1); Potassium 4.1 mmol/L (3.5-5.1)
[2017-02-15 15:11] LABS: Bilirubin, Total 0.8 mg/dL (0.2-1.0); Total Protein 8.2 g/dL (6.4-8.2)
[2017-02-15 18:26] LABS: INR 1.1 (0.9-1.15); Prothrombin Time 11.3 sec (9.37-12.3)
== END | disposition home or self-care (01) ==
LOC: LAB 14:19
PROVIDERS: ATTEND Internal Medicine
DX: I10 Essential (primary) hypertension (principal); I42.0 Dilated cardiomyopathy; I50.20 Unspecified systolic (congestive) heart failure
CPT/HCPCS: 36415; 80053; 85610; 85730

== ENCOUNTER 2017-03-11 15:04 | Inpatient (IN) | payer MEDICAID ==
[~2017-03-11] VITALS: Ht 157.5 cm; Wt 60.2 kg
[2017-03-11 15:50] LABS: Basophils # (auto) 0 uL; Basophils % (auto) 0.4 % (0.0-2.0); DEFINITIVE VIEW TRANSMISSION; Eosinophils # (auto) 0.2 uL; Eosinophils % (auto) 2.2 % (0.0-7.0); Hematocrit 42.1 % (36.0-46.0); Hemoglobin 13.5 g/dL (12.2-16.2); Lymphocytes # (auto) 1.9 uL; Mean Corpuscular Hemoglobin 26.5 pg (28.0-32.0); Mean Corpuscular Hgb Conc. 32.2 g/dL (32.0-36.0); Mean Corpuscular Volume 82.5 fL (80.0-100.0); Mean Platelet Volume 8.5 fL (7.4-10.4); Monocytes # (auto) 0.7 uL; Monocytes % (auto) 6.7 % (0.0-12.0); Neutrophils # (auto) 7.1 uL; Neutrophils % (auto) 71.7 % (37.0-80.0); Platelet Count (auto) 375 10^3/uL (140-450); Red Cell Distribution Width 19.8 % (11.6-16.0)
[2017-03-11 16:04] LABS: Albumin 3.4 g/dL (3.4-5.0); BUN/Creatinine Ratio 18.8; Calcium 8.4 mg/dL (8.5-10.1); Potassium 3.3 mmol/L (3.5-5.1)
[2017-03-11 16:09] LABS: Bilirubin, Total 0.4 mg/dL (0.2-1.0); Total Protein 7.8 g/dL (6.4-8.2)
[2017-03-11] MEDS ORDERED: SODIUM CHLORIDE 0.9% 1,000 ML IV ONE ×2 (17:28→21:15)
[2017-03-11] MEDS ORDERED: POTASSIUM CHL 10% (20 MEQ/15ML) ORAL SOLN PO ONE (18:15)
[2017-03-11 18:18] LABS: Anisocytosis Slight; Hypochromia Slight; Large Platelets FEW; Platelet Estimate Adequa
[2017-03-11] MEDS: SODIUM CHLORIDE 0.9% 1,000 ML IV ONE ×2 (20:30→20:45)
[2017-03-12] VITALS (7 sets, daily range): BP systolic 100–121; BP diastolic 59–78
[2017-03-12] MEDS ORDERED: ACETAMINOPHEN 325 MG TAB PO PRN (02:30)
[2017-03-12] MEDS ORDERED: MORPHINE SULF INJ 2 MG/ML SYRINGE 1ML IV PRN (02:30)
[2017-03-12] MEDS ORDERED: DEXTROSE (50%) 50ML SYRG IV PRN (02:30)
[2017-03-12] MEDS ORDERED: DOCUSATE SOD 100 MG CAP PO PRN (02:30)
[2017-03-12] MEDS ORDERED: ONDANSETRON HCL 4 MG/2 ML VIAL IV PRN (02:30)
[2017-03-12] MEDS ORDERED: HYDROcodone-ACET 5/325MG TAB PO PRN (02:30)
[2017-03-12] MEDS ORDERED: NITROGLYCERIN 0.4 MG SL TAB SL PRN (02:30)
[2017-03-12] MEDS: ACCU-CHEK COMFORT CURVE STRIP VI SCH ×3 (05:45→12:03)
[2017-03-12] MEDS: InsuLIN REG 1unit/0.01ml Soln (100units/ml) SC SCH ×2 (05:46→12:00)
[2017-03-12] MEDS ORDERED: ENOXAPARIN SOD 40 MG/0.4 ML SYRINGE SC SCH (10:00)
[2017-03-12] MEDS: ASPirin 81 mg TAB PO SCH (11:59)
[2017-03-12] MEDS: FUROSEMIDE 40 MG TAB PO SCH (12:00)
[2017-03-12] MEDS: FAMOTIDINE 20 MG TAB PO SCH ×2 (12:01→21:42)
[2017-03-12] MEDS ORDERED: POTASSIUM CHL 20 Meq TABLET PO ONE (14:00)
[2017-03-12] MEDS: NICOTINE 7MG/24HR TOPICAL PATCH TD SCH (16:52)
[2017-03-12] MEDS ORDERED: PRAVASTATIN SODIUM 20 MG TAB PO SCH (22:00)
[2017-03-12] MEDS ORDERED: PATIENTS OWN MEDICATION (simvastatin 10 MG) PO SCH ×2 (22:00)
[2017-03-13 05:00] VITALS: BP_SYST 115; BP_SYST 119; BP_DIAS 77; BP_DIAS 79; BP_DIAS 80
[2017-03-13 05:48] LABS: Basophils # (auto) 0.1 uL; Basophils % (auto) 0.5 % (0.0-2.0); DEFINITIVE VIEW TRANSMISSION; Eosinophils # (auto) 0.4 uL; Hematocrit 42.3 % (36.0-46.0); Hemoglobin 13.6 g/dL (12.2-16.2); Lymphocytes # (auto) 2.1 uL; Lymphocytes % (auto) 17.3 % (10.0-50.0); Mean Corpuscular Hemoglobin 26.2 pg (28.0-32.0); Mean Corpuscular Hgb Conc. 32.2 g/dL (32.0-36.0); Mean Corpuscular Volume 81.5 fL (80.0-100.0); Mean Platelet Volume 8.8 fL (7.4-10.4); Monocytes # (auto) 0.9 uL; Monocytes % (auto) 6.9 % (0.0-12.0); Neutrophils # (auto) 8.9 uL; Neutrophils % (auto) 72.3 % (37.0-80.0); Platelet Count (auto) 312 10^3/uL (140-450); Red Cell Distribution Width 19.5 % (11.6-16.0); White Blood Cell 12.3 10^3/uL (4.4-10.8)
[2017-03-13 06:07] LABS: Potassium 4.6 mmol/L (3.5-5.1)
[2017-03-13 06:10] LABS: Albumin 3.2 g/dL (3.4-5.0); BUN/Creatinine Ratio 22.8; Calcium 8.9 mg/dL (8.5-10.1)
[2017-03-13 06:14] LABS: Bilirubin, Total 0.3 mg/dL (0.2-1.0); Total Protein 7.4 g/dL (6.4-8.2)
[2017-03-13 09:00] VITALS: BP 125/81
[2017-03-13] MEDS ORDERED: METOPROLOL SUCCINATE XL 50 MG TAB PO SCH (10:00)
[2017-03-13] MEDS: FAMOTIDINE 20 MG TAB PO SCH (10:33)
[2017-03-13] MEDS: FUROSEMIDE 40 MG TAB PO SCH (10:33)
[2017-03-13] MEDS: ASPirin 81 mg TAB PO SCH (10:34)
[2017-03-13] MEDS: NICOTINE 7MG/24HR TOPICAL PATCH TD SCH (10:35)
[2017-03-13 12:41] VITALS: BP 104/70
[2017-03-13 15:36] VITALS: BP 125/81
== END 2017-03-13 16:20 | disposition home or self-care (01) | DRG 204 ==
LOC: EDBD 15:04 → ER 15:04 → TELE 15:05 → WEST WING 03-12 02:54 → TELE-WESTW 03-12 04:28
PROVIDERS: ADMIT Nurse Practitioner; ATTEND Nurse Practitioner Acute Care
DX: R55 Syncope and collapse (principal); I42.9 Cardiomyopathy, unspecified; I50.9 Heart failure, unspecified; E44.1 Mild protein-calorie malnutrition; E87.1 Hypo-osmolality and hyponatremia; I11.0 Hypertensive heart disease with heart failure; E11.9 Type 2 diabetes mellitus without complications; F17.200 Nicotine dependence, unspecified, uncomplicated; E87.6 Hypokalemia; I25.10 Atherosclerotic heart disease of native coronary artery without angina pectoris; I70.0 Atherosclerosis of aorta; I95.1 Orthostatic hypotension; I44.7 Left bundle-branch block, unspecified; F15.90 Other stimulant use, unspecified, uncomplicated; F32.9 Major depressive disorder, single episode, unspecified; E78.5 Hyperlipidemia, unspecified; Z90.49 Acquired absence of other specified parts of digestive tract; Z98.51 Tubal ligation status; Z82.5 Family history of asthma and other chronic lower respiratory diseases; Z82.49 Family history of ischemic heart disease and other diseases of the circulatory system; Z84.89 Family history of other specified conditions; Z82.61 Family history of arthritis; Z71.89 Other specified counseling; I25.2 Old myocardial infarction; Z68.24 Body mass index [BMI] 24.0-24.9, adult
CPT/HCPCS: 36415; 70450; 71020; 80053; 80320; 82962; 83735; 84443; 84484; 85025; 87081; 93005; 93886; 94761; 95819; 96360; 96361; G0434

== ENCOUNTER 2018-12-05 10:30 | Inpatient (IN) | payer MEDICAID | END 2018-12-08 19:40 | LOC: ER 10:30 → TELE 14:42 → TELE-WESTW 21:35 | DX: K57.20 Diverticulitis of large intestine with perforation and abscess without bleeding (principal); I50.33 Acute on chronic diastolic (congestive) heart failure; E44.0 Moderate protein-calorie malnutrition; I11.0 Hypertensive heart disease with heart failure ==

== ENCOUNTER 2018-12-28 00:49 | Inpatient (IN) | payer MEDICAID ==
[~2018-12-28] VITALS: Ht 167.6 cm; Wt 61.1 kg
[~2018-12-28 00:49] MED LIST changes: -CARV3.1213 PO; -ENA2.5T PO; -SIMV10TA84 PO; -SPIR25TA89 PO
[2018-12-28] MEDS ORDERED: CLOPIDOGREL 300 MG TAB PO ONE (01:15)
[2018-12-28 01:18] LABS: Basophils # (auto) 0.1 uL; Eosinophils # (auto) 0.1 uL; Eosinophils % (auto) 0.6 % (0.0-7.0); Lymphocytes # (auto) 1.4 uL; Monocytes % (auto) 11.5 % (0.0-12.0); Neutrophils # (auto) 6.6 uL; Neutrophils % (auto) 72.1 % (37.0-80.0); White Blood Cell 9.1 10^3/uL (4.4-10.8)
[2018-12-28 01:20] LABS: Basophils % (auto) 0.9 % (0.0-2.0); Hematocrit 39.4 % (36.0-46.0); Hemoglobin 12.6 g/dL (12.2-16.2); Lymphocytes % (auto) 14.9 % (10.0-50.0); Mean Corpuscular Hemoglobin 26.5 pg (28.0-32.0); Mean Corpuscular Hgb Conc. 31.9 g/dL (32.0-36.0); Mean Corpuscular Volume 83.1 fL (80.0-100.0); Platelet Count (auto) 438 10^3/uL (140-450); Red Blood Cells 4.74 10^6/uL (4.0-5.20); Red Cell Distribution Width 19.8 % (11.8-14.3)
[2018-12-28] MEDS ORDERED: ASPirin 81 mg TAB ONE (01:28)
[2018-12-28] MEDS ORDERED: ASPirin 81 mg TAB PO ONE (01:30)
[2018-12-28 01:40] LABS: Albumin 2.7 g/dL (3.4-5.0); BUN/Creatinine Ratio 15.2; Calcium 8.1 mg/dL (8.5-10.1); Potassium 4.4 mmol/L (3.5-5.1)
[2018-12-28 01:45] LABS: Bilirubin, Total 1.4 mg/dL (0.2-1.0); Total Protein 7.2 g/dL (6.4-8.2)
[2018-12-28 01:51] LABS: INR 1.58 (0.9-1.15); Partial Thromboplastin Time 24.5 sec (23.78-33.04); Prothrombin Time 16.5 sec (9.27-12.13)
[2018-12-28] MEDS ORDERED: MORPHINE SULFATE 4 MG/ML SYR/VIAL IV ONE (02:15)
[2018-12-28] MEDS ORDERED: ONDANSETRON HCL 4 MG/2 ML VIAL IV ONE (02:15)
[2018-12-28] MEDS ORDERED: ENOXAPARIN SOD 100 MG/1 ML SYRINGE SC ONE (03:30)
[2018-12-28] MEDS ORDERED: ONDANSETRON HCL 4 MG/2 ML VIAL IV PRN (08:00)
[2018-12-28] MEDS ORDERED: ACETAMINOPHEN 325 MG TAB PO PRN (08:00)
[2018-12-28] MEDS ORDERED: NITROGLYCERIN 0.4 MG SL TAB SL PRN (08:00)
[2018-12-28] MEDS ORDERED: IOHEXOL 350 MG/ML 100ML IJ ONE ×2 (08:14→15:08)
[2018-12-28] MEDS ORDERED: FAMOTIDINE 20 MG TAB PO SCH (10:00)
[2018-12-28] MEDS: ENALAPRIL MALEATE 2.5 MG TAB PO SCH (10:00)
[2018-12-28] MEDS: ENOXAPARIN SOD 80 MG/0.8ML SYRINGE SC SCH ×2 (10:00→22:37)
[2018-12-28] MEDS ORDERED: NITROGLYCERIN 0.4 MG SL TAB SL ONE (10:00)
[2018-12-28] MEDS: CARVEDILOL 3.125 MG TAB PO SCH ×2 (10:00→22:36)
[2018-12-28] MEDS: CLOPIDOGREL BISULFATE 75 MG TAB PO SCH (10:05)
[2018-12-28] MEDS: ASPirin 81 mg TAB PO SCH (10:05)
[2018-12-28] MEDS ORDERED: LIDOCAINE 2%HCL (LOCAL ANESTH.) INJ 20ML MDV ONE (15:08)
[2018-12-28] MEDS ORDERED: MIDAZOLAM HCL 1MG/1ML-2 ML VIAL ONE (15:10)
[2018-12-28] MEDS ORDERED: fentaNYL CITRATE 100 MCG/2 ML VL ONE (15:10)
[2018-12-28] MEDS ORDERED: ANGIOMAX 250 MG VIAL IV ONE (15:11)
[2018-12-28] MEDS ORDERED: SODIUM CHL 0.9% 0 ML ONE (15:11)
[2018-12-28] MEDS ORDERED: FUROSEMIDE 20 MG/2 ML VIAL IV SCH (18:00)
--- NOTE | 2018-12-28 18:24 | NUR ---
Family contact info Daughter: Osmin [phone] Sister: Bernie [phone]
--- NOTE | 2018-12-28 18:39 | NUR ---
Report received from RNIvett. Patient brought to bed 79A following right and left Cardiac catheterization, on cardiac rehab nurse. Patient transferred to unit bed, connected to rough rounder #[id number]. Catheterization site assessed for any bleeding, redness or swelling. Pressure dressing dry/intact. Pedal pulses on affected leg assessed for positive tissue perfusion. Patient instructed on need to notify staff immediately if any pain, burning or wetness to site, and any lower back pain. . All questions and concerns addressed, patient verbalized understanding of all education and instruction.
[2018-12-28 18:52] LABS: Urine Bacteria NONE SEEN /hpf (None Seen); Urine Blood Negative /uL (Negative); Urine WBC 9 /hpf (0 - 5)
[2018-12-28 19:13] LABS: Alcohol, Urine < 3.0 mg/dL (0-5); Amphetamine Screen, Urine NEGATIVE (NEGATIVE); Barbiturate Scree,Urine NEGATIVE (NEGATIVE); Benzodiazephine Screen, Urine POSITIVE (NEGATIVE); Cannabinoid Screen, Urine NEGATIVE (NEGATIVE); Cocaine Screen, Urine NEGATIVE (NEGATIVE); Opiate Scree,Urine POSITIVE (NEGATIVE); Phencyclidine Screen, Urine NEGATIVE (NEGATIVE)
--- NOTE | 2018-12-28 19:15 | NUR ---
Opening Shift Note Assumed care of patient. Patient is awake and alert. No S/S of distress/SOB or pain. Instructed on POC and to call for assist PRN, will continue to monitor for changes Q1hr and PRN.
--- NOTE | 2018-12-28 19:43 | NUR ---
CLOSING NOTE Endorsed care of patient to NOC RNCatherine.
[2018-12-28 22:00] VITALS: BP 109/55
[2018-12-28] MEDS: TEMAZEPAM 15 MG CAP PO PRN (22:34)
[2018-12-28] MEDS: ATORVASTATIN 20 MG TAB PO SCH (22:36)
[2018-12-28] MEDS: HYDROcodone-ACET 5/325MG TAB PO PRN (23:47)
--- NOTE | 2018-12-29 | NUR ---
Dr Chan at bedside Additional orders received and carried out.
[2018-12-29 05:00] VITALS: BP 100/71
[2018-12-29] MEDS: FUROSEMIDE 40 MG/4 ML VIAL IV SCH ×2 (05:34→18:32)
[2018-12-29] MEDS: HYDROcodone-ACET 5/325MG TAB PO PRN ×3 (05:35→15:07)
[2018-12-29 06:29] LABS: Basophils # (auto) 0.1 uL; Eosinophils # (auto) 0.1 uL; Hemoglobin 11.8 g/dL (12.2-16.2); Lymphocytes # (auto) 1.2 uL; Neutrophils # (auto) 5.4 uL
[2018-12-29 06:31] LABS: Basophils % (auto) 0.8 % (0.0-2.0); Eosinophils % (auto) 0.9 % (0.0-7.0); Hematocrit 36.8 % (36.0-46.0); Lymphocytes % (auto) 15.1 % (10.0-50.0); Mean Corpuscular Hemoglobin 26.7 pg (28.0-32.0); Mean Corpuscular Hgb Conc. 32.1 g/dL (32.0-36.0); Monocytes # (auto) 1.1 uL; Monocytes % (auto) 13.6 % (0.0-12.0); Neutrophils % (auto) 69.6 % (37.0-80.0); Nucleated Red Blood Cells % 0.1 %; Platelet Count (auto) 407 10^3/uL (140-450); Red Blood Cells 4.44 10^6/uL (4.0-5.20); Red Cell Distribution Width 19.4 % (11.8-14.3); White Blood Cell 7.8 10^3/uL (4.4-10.8)
[2018-12-29 06:49] LABS: Potassium 4.4 mmol/L (3.5-5.1)
[2018-12-29 06:53] LABS: Albumin 2.7 g/dL (3.4-5.0); BUN/Creatinine Ratio 23.6; Calcium 8.1 mg/dL (8.5-10.1)
[2018-12-29 06:56] LABS: Bilirubin, Total 1.2 mg/dL (0.2-1.0)
--- NOTE | 2018-12-29 07:30 | NUR ---
Opening Shift Note Assumed care of patient, awake and alert, oriented x 4 and verbally responsive. Respiratory even and unlabored. No S/S of distress/SOB or pain. Skin is warm and dry to touch. Instructed on POC and to call for assist PRN, will continue to monitor for changes Q1hr and PRN.
[2018-12-29 09:00] VITALS: BP 109/78
[2018-12-29] MEDS: POTASSIUM CHL 20 Meq TABLET PO SCH (09:41)
[2018-12-29] MEDS: CLOPIDOGREL BISULFATE 75 MG TAB PO SCH (09:42)
[2018-12-29] MEDS: ENOXAPARIN SOD 80 MG/0.8ML SYRINGE SC SCH ×2 (09:42→21:30)
[2018-12-29] MEDS: ASPirin 81 mg TAB PO SCH (09:42)
[2018-12-29] MEDS: CARVEDILOL 3.125 MG TAB PO SCH ×2 (09:43→21:29)
[2018-12-29] MEDS: ENALAPRIL MALEATE 2.5 MG TAB PO SCH (09:44)
[2018-12-29] MEDS ORDERED: FUROSEMIDE 40 MG/4 ML VIAL IV ONE (10:15)
[2018-12-29 13:07] VITALS: BP 114/77
--- NOTE | 2018-12-29 15:23 | NUR ---
Patient said Osborne does not helpful and need other meds. Dr. Dustin cummings.
--- NOTE | 2018-12-29 15:34 | NUR ---
Received a call from Dr. Chan with new order noted and carried out.
[2018-12-29] MEDS: MORPHINE SULFATE 4 MG/ML SYR/VIAL IV PRN ×2 (16:11→21:30)
[2018-12-29 17:00] VITALS: BP 123/79
[2018-12-29] MEDS: ATORVASTATIN 20 MG TAB PO SCH (21:28)
[2018-12-29 22:00] VITALS: BP 116/80
[2018-12-30] VITALS (7 sets, daily range): BP systolic 105–123; BP diastolic 71–80
[2018-12-30] MEDS: FUROSEMIDE 40 MG/4 ML VIAL IV SCH ×2 (06:05→17:28)
--- NOTE | 2018-12-30 07:25 | NUR ---
CLOSING NOTE PATIENT IS SITTING UP IN BED WATCHING TV. NO S/S OF DISTRESS AT THIS TIME. BED IS LOW, LOCKED, CALL LIGHT IN PLACE
--- NOTE | 2018-12-30 07:30 | NUR ---
Opening Shift Note Assumed care of patient, awake and alert. No S/S of distress/SOB or pain. Instructed on POC and to call for assist PRN, will continue to monitor for changes Q1hr and PRN.
[2018-12-30] MEDS: HYDROcodone-ACET 5/325MG TAB PO PRN (08:30)
[2018-12-30] MEDS: MORPHINE SULFATE 4 MG/ML SYR/VIAL IV PRN ×3 (08:40→20:48)
[2018-12-30] MEDS: POTASSIUM CHL 20 Meq TABLET PO SCH (09:54)
[2018-12-30] MEDS: ASPirin 81 mg TAB PO SCH (09:54)
[2018-12-30] MEDS: ENOXAPARIN SOD 80 MG/0.8ML SYRINGE SC SCH ×2 (09:54→10:00)
[2018-12-30] MEDS: CARVEDILOL 3.125 MG TAB PO SCH ×2 (09:55→20:53)
[2018-12-30] MEDS: CLOPIDOGREL BISULFATE 75 MG TAB PO SCH (09:55)
[2018-12-30] MEDS: ENALAPRIL MALEATE 2.5 MG TAB PO SCH (09:55)
--- NOTE | 2018-12-30 18:35 | NUR ---
IV insertion IV access obtained, via clean sterile technique by inserting 20 gauge catheter at after attempt(s). IV secured properly. No trauma to site. Patient tolerated well.
[2018-12-30] MEDS: ATORVASTATIN 20 MG TAB PO SCH (20:52)
--- NOTE | 2018-12-30 22:55 | NUR ---
Dr. Chan at bedside Per MD qureshi lovenox and start patient on Eliquis 10mg bid instead. Informs patient she will be staying 2-3 more days.
[2018-12-30] MEDS ORDERED: APIXABAN 5 MG TAB PO ONE (23:15)
[2018-12-31] VITALS (7 sets, daily range): BP systolic 101–115; BP diastolic 65–75
[2018-12-31] MEDS: MORPHINE SULFATE 4 MG/ML SYR/VIAL IV PRN ×4 (03:13→20:07)
[2018-12-31] MEDS: FUROSEMIDE 40 MG/4 ML VIAL IV SCH ×2 (05:34→18:03)
--- NOTE | 2018-12-31 09:00 | NUR ---
Patient walks on the [address] way with PT, tolerated well.
[2018-12-31] MEDS: ASPirin 81 mg TAB PO SCH (09:54)
[2018-12-31] MEDS: APIXABAN 5 MG TAB PO SCH ×2 (09:54→22:35)
[2018-12-31] MEDS: POTASSIUM CHL 20 Meq TABLET PO SCH (09:54)
[2018-12-31] MEDS: CARVEDILOL 3.125 MG TAB PO SCH ×2 (09:54→22:35)
[2018-12-31] MEDS: CLOPIDOGREL BISULFATE 75 MG TAB PO SCH (09:55)
[2018-12-31] MEDS: ENALAPRIL MALEATE 2.5 MG TAB PO SCH (09:55)
[2018-12-31] MEDS: ATORVASTATIN 20 MG TAB PO SCH (22:35)
[2019-01-01 05:31] VITALS: BP 109/63
[2019-01-01] MEDS: FUROSEMIDE 40 MG/4 ML VIAL IV SCH ×2 (06:56→17:57)
--- NOTE | 2019-01-01 07:30 | NUR ---
OPENING SHIFT NOTE: Received report from NOC RNJyothi. Assumed care of patient. Patient resting comfortably in bed. Complains of pain 6/10 in abdomen and is requesting morphine. Will medicate as ordered. Bed in lowest position, rails x2 up and call light within reach. Updated on plan of care. Will continue to monitor.
[2019-01-01 08:39] VITALS: BP 115/75
[2019-01-01] MEDS: MORPHINE SULFATE 4 MG/ML SYR/VIAL IV PRN ×3 (08:46→22:13)
[2019-01-01] MEDS: CARVEDILOL 3.125 MG TAB PO SCH ×2 (10:00→22:14)
[2019-01-01] MEDS: ENALAPRIL MALEATE 2.5 MG TAB PO SCH (10:00)
[2019-01-01] MEDS: ASPirin 81 mg TAB PO SCH (10:22)
[2019-01-01] MEDS: APIXABAN 5 MG TAB PO SCH ×2 (10:23→22:14)
[2019-01-01] MEDS: POTASSIUM CHL 20 Meq TABLET PO SCH (10:23)
[2019-01-01] MEDS: CLOPIDOGREL BISULFATE 75 MG TAB PO SCH (10:23)
[2019-01-01 14:00] VITALS: BP 114/76
--- NOTE | 2019-01-01 15:22 | NUR ---
Nutrition Assessment Notes please see attached link for complete assessment Est. Needs based on BW (73 kg): 9193-8543 kcal (23-25 kcal/kgBW), 58-73 gms pro (0.8-1.0 gms/kgBW d/t elev RFT). Will continue to monitor pertinent labs and reassess nutrient needs prn Addendum: 01/01/19 at [address] Amended: Links added.
[2019-01-01 17:00] VITALS: BP 127/78
--- NOTE | 2019-01-01 19:11 | NUR ---
CLOSING SHIFT NOTE: Report given to NOC RN, Mirta. Endorsed care of patient. Patient resting quietly and pain is well controlled.
[2019-01-01 20:00] VITALS: BP 127/78
[2019-01-01] MEDS: ATORVASTATIN 20 MG TAB PO SCH (22:13)
[2019-01-01 22:27] VITALS: BP 114/68
[2019-01-02 05:07] VITALS: BP 113/85
[2019-01-02] MEDS: MORPHINE SULFATE 4 MG/ML SYR/VIAL IV PRN ×2 (05:20→20:51)
[2019-01-02] MEDS: FUROSEMIDE 40 MG/4 ML VIAL IV SCH ×2 (05:45→18:11)
[2019-01-02 08:00] VITALS: BP 115/78
--- NOTE | 2019-01-02 08:00 | NUR ---
Opening Shift Note Assumed care of patient, awake and alert. No S/S of distress/SOB or pain. Instructed on POC and to call for assist PRN, will continue to monitor for changes. IV is in right forearm patent, clean and dry. call light is within reach and bed is in lowest position.
[2019-01-02 09:00] VITALS: BP 115/78
[2019-01-02] MEDS: POTASSIUM CHL 20 Meq TABLET PO SCH (09:59)
[2019-01-02] MEDS: ENALAPRIL MALEATE 2.5 MG TAB PO SCH (09:59)
[2019-01-02] MEDS: CLOPIDOGREL BISULFATE 75 MG TAB PO SCH (10:00)
[2019-01-02] MEDS: APIXABAN 5 MG TAB PO SCH ×3 (10:00→22:38)
[2019-01-02] MEDS: ASPirin 81 mg TAB PO SCH (10:01)
[2019-01-02] MEDS: CARVEDILOL 3.125 MG TAB PO SCH ×2 (10:02→22:38)
[2019-01-02 13:00] VITALS: BP 102/68
[2019-01-02 17:00] VITALS: BP 112/69
--- NOTE | 2019-01-02 19:20 | NUR ---
Opening Shift Note Assumed care of patient, awake and alert and talkative. Thoughts are cyclical in that one subject is addressed and questions answered and then she returns to the same thought/issue. No S/S of distress/SOB or pain at this time. Instructed on POC and to call for assist PRN. This RN will continue to monitor for changes PRN. Bed in low position with semi-Henry's for HOB. Nurse call light across R upper bed rail.
--- NOTE | 2019-01-02 19:20 | NUR ---
CLOSING SHIFT NOTE ENDORSED CARE TO ENVIRONMENTAL SERVICES SUPERVISOR KANDIS ODOM. PATIENT HAS NO S/S OF DISTRESS/SOB OR PAIN AT THIS TIME.
--- NOTE | 2019-01-02 20:51 | NUR ---
Pt requesting medication, Morphine, for abd discomfort. Abd large, round and soft. Pt repeatedly eating snacks she requests from [facility] and fruit or other food she has kept from meal trays. She denies this causes difficulty with the diverticulitis.
[2019-01-02 22:00] VITALS: BP 111/77
--- NOTE | 2019-01-02 22:37 | NUR ---
Pt called RN into room to report that she is upset because her sister "did or did not do something to mess up my life." Pt has been repeatedly talking via telephone and now reports her sister may have changed appointments that were made for her for tomorrow. This RN advised her to let go of the problem as she evidently cannot solve it with her sister ethan. Told her she can get up in a.m. and call Drs'. offices to follow-up. Reminded her she has one more consult for this hospital stay. This RN offered Restoril as ordered for sleep; pt agreed with plan and receiving of med. Med given.
[2019-01-02] MEDS: ATORVASTATIN 20 MG TAB PO SCH (22:38)
[2019-01-02] MEDS: TEMAZEPAM 15 MG CAP PO PRN (22:45)
--- NOTE | 2019-01-03 00:45 | NUR ---
Pt awake eating food which she had smeared across overbed table (OBT). This RN informed by KANDIS Rankin, that pt is currently eating her food with a knife she had. This RN entered pt's room to find her, indeed cutting fruit and eating it with a pocket knife. Folded, the knife covering appeared to be a rey. Pt tried to rename the knife as a "utensil" and a "personal article" as this RN told her she should not be putting it into her mouth and could not keep it in the room. Pt told RN it was in the drawer beside her, to "get it yourself if you want it." This RN then followed through and removed the knife placing it in the hospital envelope to give to the Senior Benefits Analyst to place in the hospital safe. Pt signed permission to have it locked up.
--- NOTE | 2019-01-03 04:35 | NUR ---
Pt amb in hallway without oxygen. Color pink. No SOB or s/sx distress or pain. Pt has slept only brief period, approx 1 - 1 1/2hrs.
[2019-01-03 05:58] VITALS: BP 103/82
[2019-01-03] MEDS: FUROSEMIDE 40 MG/4 ML VIAL IV SCH ×2 (06:06→18:43)
--- NOTE | 2019-01-03 06:24 | NUR ---
Pt awakened from deep sleep for admin of lasix 40mg/4ml. Pt attempting to start conversation, but speech drowsy/garbled. This RN encouraged pt to resume sleep. Pt speaking of drooling. RN again encouraged her twice more to resume sleep. Pt relaxed and dropped off to sleep.
--- NOTE | 2019-01-03 08:00 | NUR ---
OPENING NOTE PT AWAKE AND ALERT, RESTING IN BED, PT ENCOURAGED TO USE CALL LIGHT PRN, WILL CONTINUE TO MONITOR.
[2019-01-03 09:00] VITALS: BP 113/80
--- NOTE | 2019-01-03 09:00 | NUR ---
PT REPORTS 7/10 PAIN IN BACK AND LEGS. WENT TO GET PRN PAIN MEDICATION AND UPON COMING BACK, PT SLEEPING. ATTEMPTED TO WAKE PT, PT VERY DROWSY AND DIFFICULT TO ROUSE. PT REPORTS SHE FEELS, "TIRED AND OUT OF IT." ASKED PT IF SHE WANTED TO HOLD OFF ON PAIN MEDICATION UNTILL AFTER SHE RESTS. PT AGREED. WILL CONTINUE TO MONITOR.
[2019-01-03] MEDS: CLOPIDOGREL BISULFATE 75 MG TAB PO SCH (10:12)
[2019-01-03] MEDS: APIXABAN 5 MG TAB PO SCH ×2 (10:13→22:20)
[2019-01-03] MEDS: ASPirin 81 mg TAB PO SCH (10:14)
[2019-01-03] MEDS: ENALAPRIL MALEATE 2.5 MG TAB PO SCH (10:14)
[2019-01-03] MEDS: CARVEDILOL 3.125 MG TAB PO SCH ×2 (10:15→22:20)
[2019-01-03] MEDS: POTASSIUM CHL 20 Meq TABLET PO SCH (10:19)
--- NOTE | 2019-01-03 12:42 | NUR ---
PT Patient would not wake up for PT during visit. Addendum: 01/03/19 at 1243 by AGNIESZKA GARCIA PTT Amended: Links added.
[2019-01-03] MEDS: HYDROcodone-ACET 5/325MG TAB PO PRN (12:59)
[2019-01-03 13:00] VITALS: BP 117/66
--- NOTE | 2019-01-03 13:01 | NUR ---
PT AWAKE AND ALERT AND REPORTS 8/10 PAIN IN LEGS. EDUCATED PATIENT PAIN WAS FROM HER SEVERE BILATERAL LEG EDEMA, WHICH PUTS PRESSURE ON THE NERVES CAUSING PAIN. ASKED PATIENT ABOUT HER DROWSINESS EARLIER AND ASKED IF SHE WAS TAKING ANY HOME MEDICATIONS. PT DENIED TAKING ANY HOME MEDICATIONS AND BECAME AGITATED. PRN NORCO GIVEN FOR PAIN, WILL CONTINUE TO MONITOR.
--- NOTE | 2019-01-03 13:50 | NUR ---
Report Received. Assumed care of patient, patient alert and awake and is currently resting in bed. Patient is on RA with even and unlabored respirations. No S/S of distress/SOB. Patient's pain reassessed at this time. Pain in lower leds 5/10 at this time. Patient verbalized pain at tolerable level at this time. will continue to monitor pain. Bed is in lowest position, wheels are locked, side rails up x2, and call light is within reach. Instructed on POC and to call for assist PRN, will continue to monitor for changes Q1hr and PRN.
--- NOTE | 2019-01-03 16:14 | NUR ---
FAMILY AT BEDSIDE DAUGHTER AT BEDSIDE VISITING WITH PATIENT. FAMILY MEMBER AND PATIENT REQUESTING POCKET KNIFE THAT WE HAVE STORED IN SAFE BE RETURNED AND DAUGHTER WILL TAKE HOME WITH HER. AIDAN SUP PAGED. POCKET KNIFE RETURNED TO PATIENT. VALUABLES CONFIRMED AND HANDED IMMEDIATELY TO DAUGHTER. INFORMED DAUGHTER TO PLEASE MAKE SURE KNIFE IS TAKE HOME IN HER POSSESSION. BOTH PATIENT AND DAUGHTER VERBALIZED UNDERSTANDING.
--- NOTE | 2019-01-03 17:00 | NUR ---
Rounds Patient awake and alert. No S/S of distress/SOB. pain 7/, patient declined medications at this time and states will most likely want Morphine in a little while. patient educated on pain management and that waiting too long can cause severe uncontrollable pain. patient verbalized understanding and stated she will call if the pain worsens. Will continue to monitor changes q1hr and PRN.
--- NOTE | 2019-01-03 17:16 | NUR ---
Dr. Chan at bedside Dr. Chan assessing patient. Received order for bilateral lower extremity venous doppler. Orders carried out, will continue to monitor q1h and prn.
[2019-01-03 18:32] VITALS: BP 105/67
[2019-01-03] MEDS: MORPHINE SULFATE 4 MG/ML SYR/VIAL IV PRN (18:44)
--- NOTE | 2019-01-03 19:15 | NUR ---
Closing Note Patient awake and alert resting in bed. No S/S of distress/SOB or pain at this time. Report given to EVELYN Conner, care endorsed.
--- NOTE | 2019-01-03 19:15 | NUR ---
Opening Shift Note Assumed care of patient, awake and alert and in bed. No S/S of distress/SOB or pain. Report received from Day RN. Will continue to monitor for changes PRN.
--- NOTE | 2019-01-03 20:36 | NUR ---
Pt amb in hallway with walker, going downstairs to buy 'something crunchy'. No s/sx SOB or distress. Pt expressing pleasure with amount of edema decreased, showing this RN her legs. Will return to room.
[2019-01-03 22:00] VITALS: BP 109/78
[2019-01-03] MEDS: ATORVASTATIN 20 MG TAB PO SCH (22:24)
[2019-01-04] MEDS: MORPHINE SULFATE 4 MG/ML SYR/VIAL IV PRN ×4 (01:06→20:25)
[2019-01-04 05:00] VITALS: BP 114/70
[2019-01-04] MEDS: FUROSEMIDE 40 MG/4 ML VIAL IV SCH ×2 (06:07→18:29)
--- NOTE | 2019-01-04 07:20 | NUR ---
Opening Shift Note Assumed care of patient, awake and alert. No S/S of distress/SOB or pain. Instructed on POC-await for GI consult, pain management. Patient informed to call for assist PRN, will continue to monitor for changes Q1hr and PRN.
[2019-01-04 09:00] VITALS: BP 102/63
[2019-01-04] MEDS: ASPirin 81 mg TAB PO SCH (10:51)
[2019-01-04] MEDS: POTASSIUM CHL 20 Meq TABLET PO SCH (10:51)
[2019-01-04] MEDS: APIXABAN 5 MG TAB PO SCH ×2 (10:52→22:19)
[2019-01-04] MEDS: ENALAPRIL MALEATE 2.5 MG TAB PO SCH (10:52)
[2019-01-04] MEDS: CARVEDILOL 3.125 MG TAB PO SCH ×2 (10:52→22:19)
[2019-01-04] MEDS: CLOPIDOGREL BISULFATE 75 MG TAB PO SCH (10:52)
[2019-01-04] MEDS: HYDROcodone-ACET 5/325MG TAB PO PRN (10:59)
[2019-01-04 13:00] VITALS: BP 95/65
--- NOTE | 2019-01-04 14:48 | NUR ---
Nutrition Follow-up Notes Wt.: 68.5 kg as of yesterday. Pt's asleep, no immediate family member at bedside during rounds this morning. Pt's no signs of distress noted earlier, currently on Consistent Carb, Cardiac diet with adequate PO intake aeb 85% ave. consumed meals (x6) in last 2.3 days. Est. Needs based on BW (73 kg): 1113-2509 kcal (23-25 kcal/kgBW), 58-73 gms pro (0.8-1.0 gms/kgBW d/t elev RFT). Will continue to monitor pertinent labs and reassess nutrient needs prn Labs: No new labs since 12/29/18: Na 133 L, BUN 25 H, Cr 1.06 H, Ca 8.1 L, Tot shakila 1.2 H, AST 38 H, ALT 58 H, ALP 290 H, Alb 2.7 L, Trop I 0.069 H Skin: Reyes scale 22, low risk, skin intact per accident investigator. GI: Pt had 1 BM this morning per accident investigator. PES: Altered nutrition related lab values r/t current/chronic medical condition aeb elev RFT hyperbil, mod hypoalb, hypocalcemia Will continue to monitor PO intake, skin status, pertinent labs and weight trend. F/u in 3 to 5 days. Rec.: 1.) Continue close supervision with meals. 2.) Continue monitoring pertinent labs; If Albumin level continues trending down, consider Prostat 1 pkt BID. 3.) Refer pt to CDE/RD for further nutrition education and weight monitoring upon discharge. 4.) Continue current plan of care.
--- NOTE | 2019-01-04 15:48 | NUR ---
Contacted Dr. Chan as patient wanted to go home. Awaiting call back from MD at this time.
--- NOTE | 2019-01-04 17:01 | NUR ---
Dr. Chan called back and said discharge planning for patient tomorrow. Will relay information to the patient.
[2019-01-04 17:19] VITALS: BP 104/70
--- NOTE | 2019-01-04 19:22 | NUR ---
Closing Note Patient is resting in bed, no complaints of pain. Call light within reach and bed in lowest position. Care endorsed to night RN.
--- NOTE | 2019-01-04 19:30 | NUR ---
Opening Shift Note Assumed care of patient, awake and alert x4. No S/S of distress/SOB or pain noted. Instructed on POC and to call for assistance as needed. Bed is locked in lowest position, side rails x 2 are up, and call light is within reach.
[2019-01-04 22:00] VITALS: BP 116/78
[2019-01-04] MEDS: ATORVASTATIN 20 MG TAB PO SCH (22:18)
--- NOTE | 2019-01-05 00:59 | NUR ---
DR. Chan at Beside Dr. Chan at bedside discussing plan of care with patient and this RN. New orders received. Orders read back and verified. Will implement orders as received.
[2019-01-05] MEDS: TEMAZEPAM 15 MG CAP PO PRN (01:06)
[2019-01-05 05:00] VITALS: BP 124/85
[2019-01-05] MEDS ORDERED: METOLAZONE 5 MG TAB PO ONE (05:30)
[2019-01-05 06:45] LABS: Basophils # (auto) 0.1 uL; Lymphocytes # (auto) 1.2 uL; Neutrophils # (auto) 4.9 uL
[2019-01-05 06:48] LABS: Eosinophils # (auto) 0.2 uL; Eosinophils % (auto) 2.1 % (0.0-7.0); Hematocrit 34.8 % (36.0-46.0); Hemoglobin 11.2 g/dL (12.2-16.2); Lymphocytes % (auto) 16.3 % (10.0-50.0); Mean Corpuscular Hemoglobin 26.1 pg (28.0-32.0); Mean Corpuscular Hgb Conc. 32.1 g/dL (32.0-36.0); Mean Corpuscular Volume 81.2 fL (80.0-100.0); Monocytes % (auto) 13.6 % (0.0-12.0); Nucleated Red Blood Cells % 0.7 %; Platelet Count (auto) 311 10^3/uL (140-450); Red Blood Cells 4.29 10^6/uL (4.0-5.20); Red Cell Distribution Width 19.2 % (11.8-14.3); White Blood Cell 7.3 10^3/uL (4.4-10.8)
[2019-01-05] MEDS: FUROSEMIDE 40 MG/4 ML VIAL IV SCH ×2 (06:57→18:01)
[2019-01-05 07:04] LABS: Albumin 2.6 g/dL (3.4-5.0); Potassium 3.1 mmol/L (3.5-5.1)
[2019-01-05 07:10] LABS: BUN/Creatinine Ratio 33.9; Bilirubin, Total 1.3 mg/dL (0.2-1.0); Total Protein 6.9 g/dL (6.4-8.2)
--- NOTE | 2019-01-05 07:30 | NUR ---
Opening Shift Note Assumed care of patient, awake and alert. No S/S of distress/SOB. Patient reported generalized pain and is asking for pain medicine. Instructed on POC-keep on fluid restriction of 1,200/24 hours, will monitor intake and output, continue medications as ordered by MD, pain management. Patient informed her BP might drop as she was given more diuretic medications. Patient informed to take precaution when getting out from bed. Patient instructed to call for assist PRN, will continue to monitor for changes Q1hr and PRN.
[2019-01-05 08:00] VITALS: BP 98/62
[2019-01-05] MEDS: MORPHINE SULFATE 4 MG/ML SYR/VIAL IV PRN ×3 (08:12→23:25)
[2019-01-05] MEDS: CARVEDILOL 3.125 MG TAB PO SCH ×2 (10:00→22:30)
[2019-01-05] MEDS: ENALAPRIL MALEATE 2.5 MG TAB PO SCH (10:00)
[2019-01-05] MEDS: APIXABAN 5 MG TAB PO SCH ×2 (10:13→22:29)
[2019-01-05] MEDS: CLOPIDOGREL BISULFATE 75 MG TAB PO SCH (10:14)
[2019-01-05] MEDS: POTASSIUM CHL 20 Meq TABLET PO SCH ×2 (10:14→22:28)
[2019-01-05] MEDS: ASPirin 81 mg TAB PO SCH (10:14)
[2019-01-05 12:00] VITALS: BP 115/76
--- NOTE | 2019-01-05 13:04 | NUR ---
PT Patient independent, D/C to nursing. Addendum: 01/06/19 at 0805 by AGNIESZKA GARCIA PTT Amended: Links added.
[2019-01-05 17:00] VITALS: BP 111/71
--- NOTE | 2019-01-05 19:00 | NUR ---
Closing Note Patient is resting in bed, no complaints of pain. Call light within reach and bed in lowest position. Care endorsed to night RN.
--- NOTE | 2019-01-05 19:30 | NUR ---
Opening Shift Note Assumed care of patient, awake and alert x4. No S/S of distress/SOB or pain noted. Instructed on plan of care and to call for assistance as needed. Bed is locked in lowest position, side rails x 2 are up, and call light is within reach.
--- NOTE | 2019-01-05 21:00 | NUR ---
SPOKE WITH MD CHAN RE: POTASSIUM LEVEL Spoke with MD Chan regarding patients potassium level of 3.1. Informed MD Chan that patient is now complaining of muscle cramps in her lower extremites. MD Chan ordered 20 mEq of IV potassium one time now and 40 PO mEq of potassium at 0200 on 01-06-19. MD Chan also gave orders to give diuretics as scheduled for 0600 tomorrow morning (01-06-19). Orders read back and verified. Will implement orders as received.
[2019-01-05 22:00] VITALS: BP 120/70
[2019-01-05] MEDS: ATORVASTATIN 20 MG TAB PO SCH (22:28)
[2019-01-05] MEDS ORDERED: POTASSIUM CHL 20 Meq TABLET PO ONE (22:30)
[2019-01-05] MEDS ORDERED: POTASSIUM CHL 20MEQ/100ML 100 ML IV ONE (23:00)
[2019-01-06] MEDS ORDERED: POTASSIUM CHL 20 Meq TABLET PO ONE ×3 (02:00→16:00)
[2019-01-06] MEDS: MORPHINE SULFATE 4 MG/ML SYR/VIAL IV PRN ×2 (04:44→22:07)
[2019-01-06 05:00] VITALS: BP 129/69
[2019-01-06] MEDS: METOLAZONE 5 MG TAB PO SCH ×2 (05:32→09:49)
[2019-01-06] MEDS: FUROSEMIDE 40 MG/4 ML VIAL IV SCH ×2 (06:20→17:20)
[2019-01-06 06:41] LABS: Basophils # (auto) 0.1 uL; Eosinophils # (auto) 0.1 uL; Lymphocytes # (auto) 1.2 uL; Lymphocytes % (auto) 12.7 % (10.0-50.0)
[2019-01-06 06:44] LABS: Basophils % (auto) 0.8 % (0.0-2.0); Eosinophils % (auto) 1.3 % (0.0-7.0); Hematocrit 36.8 % (36.0-46.0); Mean Corpuscular Hemoglobin 26.2 pg (28.0-32.0); Mean Corpuscular Hgb Conc. 32.7 g/dL (32.0-36.0); Mean Corpuscular Volume 80.1 fL (80.0-100.0); Monocytes % (auto) 11.1 % (0.0-12.0); Neutrophils # (auto) 6.8 uL; Neutrophils % (auto) 74.1 % (37.0-80.0); Platelet Count (auto) 342 10^3/uL (140-450); Red Cell Distribution Width 19.8 % (11.8-14.3); White Blood Cell 9.1 10^3/uL (4.4-10.8)
[2019-01-06 07:00] LABS: Albumin 2.8 g/dL (3.4-5.0)
[2019-01-06 07:05] LABS: BUN/Creatinine Ratio 23.6; Bilirubin, Total 1.4 mg/dL (0.2-1.0); Calcium 8.4 mg/dL (8.5-10.1); Total Protein 7.6 g/dL (6.4-8.2)
--- NOTE | 2019-01-06 07:27 | NUR ---
CLOSING SHIFT NOTE Endorsed patient care to KANDIS Prado.
[2019-01-06 07:43] LABS: Potassium 2.9 mmol/L (3.5-5.1)
[2019-01-06 09:00] VITALS: BP 103/68
--- NOTE | 2019-01-06 09:03 | NUR ---
Critical labs/notified MD Spoke to MD Chan, aware of patients status including critical labs. New orders received for krider 20meq iv once now, 40 meq po at 1200 and 40meq po at 1600. Patient resting in bed comfortably, no s.s of distress or sob. Will medicate as ordered and cont care
[2019-01-06] MEDS: POTASSIUM CHL 20MEQ/100ML 100 ML IV ONE ×2 (09:45→10:42)
--- NOTE | 2019-01-06 09:45 | NUR ---
PT TOLD KANDIS PÉREZ THAT SHE HAS NOT HAD A BED OR GOWN CHANGE SINCE SHE WAS ADMITTED FROM ER. SPOKE WITH NASRIN HORTON WHO HAD HER YESTER 01/05/29 AND STATED THAT SHE DID GET A BED CHANGE AND GOWN CHANGE. OFFERED TO CHANGE EVERYTHING AGAIN AND SHE REFUSED. WILL CONTINUE TO ASK HER DURING THE DAY.
[2019-01-06] MEDS: ENALAPRIL MALEATE 2.5 MG TAB PO SCH (09:46)
[2019-01-06] MEDS: POTASSIUM CHL 20 Meq TABLET PO SCH ×2 (09:46→21:59)
[2019-01-06] MEDS: CLOPIDOGREL BISULFATE 75 MG TAB PO SCH (09:47)
[2019-01-06] MEDS: ASPirin 81 mg TAB PO SCH (09:47)
[2019-01-06] MEDS: APIXABAN 5 MG TAB PO SCH ×2 (09:48→21:59)
[2019-01-06] MEDS: CARVEDILOL 3.125 MG TAB PO SCH ×2 (09:50→21:59)
--- NOTE | 2019-01-06 10:10 | NUR ---
GI at bedside GI Dr Guajardo at bedside, no new orders at this time
--- NOTE | 2019-01-06 10:42 | NUR ---
at bedside MD Chan at bedside, aware of patients status including pt was refusing K-rider as ordered. After extensive reinforcement and teaching from MD Chan pt now agrees to medication as ordered. Will medicate with Potassium as ordered.
--- NOTE | 2019-01-06 10:58 | NUR ---
Pt agreed to have bed changed. and genet bustos changed bed and wiped down with sani wipes. Also gave patient new socks, underwear and 2 gowns.
[2019-01-06 13:00] VITALS: BP 108/76
--- NOTE | 2019-01-06 15:25 | NUR ---
IV Patient came to nurse's station c/o "air bubbles in the IV tubing" couple of tiny air bubbles noted to tubing past the pump. I informed patient I would flush tubing and clear tubing, I stopped the IV right away and instructed her to go back to her room where this rn would meet her to flush tubing. Pt requested to speak to epidemiology internship Fabricio who instructed patient that small amt of tiny air bubbles are fine and will not hurt her. IV pump was stopped and this rn flushed line with NS and disposed in trash can as patient states "your trying to kill me!" she states she "looked it up on [employer] and it says air bubbles can kill you, now [employer] is no doctor but I'm going based on what it says here" I instructed patient this rn is not trying to kill her and that I am just flushing the tubing as it is disconnected from her IV site and disposing in trash can. She states she does not care and does not want this rn "to touch me again because you're trying to kill me!" I informed epidemiology internship Fabricio and I will endorse care to Poonam melgar as instructed. Patient sitting in bed in no acute distress or sob noted.
--- NOTE | 2019-01-06 15:40 | NUR ---
Patient care endorsed endorsed care to Poonam melgar.
[2019-01-06 17:00] VITALS: BP 95/57
--- NOTE | 2019-01-06 19:30 | NUR ---
Opening Shift Note Assumed care of patient, asleep in high Henry's position. No S/S of distress/SOB or pain. Will continue to monitor for changes PRN. Bed in low position. Nurse call light on bed beside pt.
--- NOTE | 2019-01-06 19:55 | NUR ---
Pt in hallway, unsteadily walking and holding rail on wall. Two other RNs attempting to get pt to go to her room. This RN walked up to find pt crying with tears running down her face, raising her voice at nurses. This RN reminded her she needs her walker; "Then go get it!" she exclaimed. She then declared she had a leg cramp. This RN told her she could not walk further until the walker is obtained and got the walker. Pt refusing to hold both handles of walker, insisting on holding rail and walker; therefore, amb cont unsteady. This RN informing pt that her activity would be documented. She angrily stated, "Then go ahead." RN left pt to amb as she chose.
[2019-01-06 21:30] VITALS: BP 115/68
--- NOTE | 2019-01-06 21:45 | NUR ---
Pt amb in hallway, stopped to talk with this RN re. restricted fluids. Passive aggressive wording, requesting 'nutrition...so I have to have fluids and I want milk." RN explained to pt that only fluids for rest of night would be given soon with meds and could be milk, but then no fluids. Pt thanked nurse, nodding in agreement. Milk taken to pt's room and RN waiting for pt to return to room as now c/o pain and needs p.m. meds to be passed. Pt walked by and RN told her milk waiting in room, meds will be brought. Meds brought approx 2200. Pt had already drank milk stating, "I couldn't help myself." Pt attempting to overtalk RN re. not complying with fluid restriction. Pt stating she has 4 bottles of water in her bedside drawers and money to go downstairs to get more fluids if she desires. RN stated, that she, the pt, had been instructed re. need to comply unless she is just wanting to ; pt became silent and finally admitted that yes she had been instructed.
[2019-01-06] MEDS: ATORVASTATIN 20 MG TAB PO SCH (22:00)
[2019-01-07] MEDS: TEMAZEPAM 15 MG CAP PO PRN ×2 (03:05→23:40)
[2019-01-07 05:27] VITALS: BP 110/74
[2019-01-07] MEDS: FUROSEMIDE 40 MG/4 ML VIAL IV SCH ×2 (06:07→18:12)
--- NOTE | 2019-01-07 08:39 | NUR ---
PATIENT AMBULATING DOWN HALLWAY WITH WALKER
[2019-01-07 09:00] VITALS: BP 96/63
[2019-01-07] MEDS: POTASSIUM CHL 20 Meq TABLET PO SCH ×2 (10:20→21:43)
[2019-01-07] MEDS: CARVEDILOL 3.125 MG TAB PO SCH ×2 (10:20→21:44)
[2019-01-07] MEDS: ASPirin 81 mg TAB PO SCH (10:21)
[2019-01-07] MEDS: METOLAZONE 5 MG TAB PO SCH (10:22)
[2019-01-07] MEDS: CLOPIDOGREL BISULFATE 75 MG TAB PO SCH (10:22)
[2019-01-07] MEDS: ENALAPRIL MALEATE 2.5 MG TAB PO SCH (10:23)
[2019-01-07] MEDS: HYDROcodone-ACET 5/325MG TAB PO PRN (10:24)
[2019-01-07] MEDS: APIXABAN 5 MG TAB PO SCH ×2 (10:26→21:42)
[2019-01-07 11:22] LABS: Basophils # (auto) 0.1 uL; Basophils % (auto) 0.9 % (0.0-2.0); Eosinophils # (auto) 0.1 uL; Monocytes # (auto) 1.2 uL; Neutrophils # (auto) 7.8 uL
[2019-01-07 11:24] LABS: Eosinophils % (auto) 1.5 % (0.0-7.0); Hematocrit 38.5 % (36.0-46.0); Hemoglobin 12.8 g/dL (12.2-16.2); Mean Corpuscular Hemoglobin 26.5 pg (28.0-32.0); Mean Corpuscular Hgb Conc. 33.2 g/dL (32.0-36.0); Mean Corpuscular Volume 79.8 fL (80.0-100.0); Monocytes % (auto) 11.9 % (0.0-12.0); Neutrophils % (auto) 75.7 % (37.0-80.0); Platelet Count (auto) 364 10^3/uL (140-450); Red Blood Cells 4.82 10^6/uL (4.0-5.20); Red Cell Distribution Width 19.6 % (11.8-14.3); White Blood Cell 10.3 10^3/uL (4.4-10.8)
[2019-01-07 11:34] LABS: Calcium 8.7 mg/dL (8.5-10.1)
[2019-01-07 11:37] LABS: BUN/Creatinine Ratio 21.1; Bilirubin, Total 1.6 mg/dL (0.2-1.0); Total Protein 8.3 g/dL (6.4-8.2)
[2019-01-07 11:49] LABS: Potassium 2.6 mmol/L (3.5-5.1)
[2019-01-07 13:00] VITALS: BP 90/59
[2019-01-07 13:45] LABS: Albumin 2.9 g/dL (3.4-5.0); Bilirubin, Total 1.4 mg/dL (0.2-1.0); Calcium 8.5 mg/dL (8.5-10.1); Potassium 3.1 mmol/L (3.5-5.1); Total Protein 8.2 g/dL (6.4-8.2)
[2019-01-07 14:00] LABS: Magnesium 2.2 mg/dL (1.6-2.6); Phosphorus 3.8 mg/dL (2.5-4.90)
[2019-01-07] MEDS: MORPHINE SULFATE 4 MG/ML SYR/VIAL IV PRN ×2 (14:35→21:45)
[2019-01-07 17:00] VITALS: BP 110/68
--- NOTE | 2019-01-07 19:05 | NUR ---
Opening Note Received change of shift report from day shift RN. Patient is awake, alert and oriented x4. No signs or symptoms of distress noted at this time. Patient states generalized pain 8/10, requesting for pain medications to be administered at a later time.. Reviewed plan of care with patient, patient verbalized understanding. Bed in low and locked position, call light within reach. Will continue to monitor Q1 hour and PRN.
[2019-01-07] MEDS: ATORVASTATIN 20 MG TAB PO SCH (21:51)
[2019-01-07 22:00] VITALS: BP 116/70
--- NOTE | 2019-01-07 23:58 | NUR ---
Patient ambulating Patient ambulating around the unit using a walker. Patient states " I can't sleep, my legs are restless, walking helps" Will continue to monitor.
[2019-01-08 05:00] VITALS: BP 111/72
[2019-01-08] MEDS: FUROSEMIDE 40 MG/4 ML VIAL IV SCH ×2 (05:32→18:07)
[2019-01-08] MEDS: HYDROcodone-ACET 5/325MG TAB PO PRN (05:33)
[2019-01-08 05:58] LABS: Basophils # (auto) 0.1 uL; Platelet Count (auto) 373 10^3/uL (140-450)
[2019-01-08 06:01] LABS: Eosinophils % (auto) 1.4 % (0.0-7.0); Lymphocytes % (auto) 11.1 % (10.0-50.0); Monocytes % (auto) 12.2 % (0.0-12.0); Neutrophils # (auto) 7.6 uL; Neutrophils % (auto) 74.3 % (37.0-80.0); White Blood Cell 10.2 10^3/uL (4.4-10.8)
[2019-01-08 06:02] LABS: Eosinophils # (auto) 0.1 uL; Hematocrit 40.4 % (36.0-46.0); Hemoglobin 13.7 g/dL (12.2-16.2); Lymphocytes # (auto) 1.1 uL; Mean Corpuscular Hgb Conc. 33.8 g/dL (32.0-36.0); Mean Corpuscular Volume 79.8 fL (80.0-100.0); Monocytes # (auto) 1.2 uL; Red Blood Cells 5.07 10^6/uL (4.0-5.20); Red Cell Distribution Width 19.3 % (11.8-14.3)
[2019-01-08 06:20] LABS: Albumin 3.1 g/dL (3.4-5.0); BUN/Creatinine Ratio 24.7; Calcium 8.6 mg/dL (8.5-10.1)
[2019-01-08 06:22] LABS: Bilirubin, Total 1.4 mg/dL (0.2-1.0); Total Protein 8.7 g/dL (6.4-8.2)
--- NOTE | 2019-01-08 06:23 | NUR ---
Critical Lab Value Spoke with Catherine from lab, patient has a critical lab value of 2.9. Arnie hogan Addendum: 01/08/19 at 0630 by PARVIN DOUGLASS RN RN Arnie Chan
[2019-01-08 06:24] LABS: Potassium 2.9 mmol/L (3.5-5.1)
--- NOTE | 2019-01-08 06:37 | NUR ---
Paged Dr. Chan Awaiting call back.
--- NOTE | 2019-01-08 07:05 | NUR ---
Closing Note Report given to day shift RN. No signs or symptoms of distress noted at this time. Awaiting call back from Dr. Chan regarding critical lab value, potassium 2.9. Will endorse to day shift RN.
[2019-01-08] MEDS ORDERED: POTASSIUM CHL 20MEQ/100ML 100 ML IV ONE (07:30)
[2019-01-08] MEDS ORDERED: POTASSIUM CHL 20 Meq TABLET PO ONE ×2 (07:30→16:00)
[2019-01-08] MEDS: MORPHINE SULFATE 4 MG/ML SYR/VIAL IV PRN ×3 (08:45→20:40)
[2019-01-08 09:00] VITALS: BP 110/71
[2019-01-08] MEDS: METOLAZONE 5 MG TAB PO SCH (10:10)
[2019-01-08] MEDS: APIXABAN 5 MG TAB PO SCH ×2 (10:11→22:45)
[2019-01-08] MEDS: CLOPIDOGREL BISULFATE 75 MG TAB PO SCH (10:11)
[2019-01-08] MEDS: ENALAPRIL MALEATE 2.5 MG TAB PO SCH (10:11)
[2019-01-08] MEDS: ASPirin 81 mg TAB PO SCH (10:11)
[2019-01-08] MEDS: CARVEDILOL 3.125 MG TAB PO SCH ×2 (10:12→22:49)
[2019-01-08] MEDS: POTASSIUM CHL 20 Meq TABLET PO SCH ×2 (10:12→22:46)
[2019-01-08] MEDS ORDERED: POTASSIUM CHL 20 Meq TABLET PO SCH (12:00)
--- NOTE | 2019-01-08 13:56 | NUR ---
Nutrition Follow-up Notes Wt.:62.9 kg as of yesterday. Pt's asleep, no immediate family member at bedside when rounded this morning. Pt's no signs of distress noted earlier, currently on Consistent Carb, Cardiac diet with adequate PO intake aeb 100% ave. consumed meals (x6) in last 3 days. Est. Needs based on BW (73 kg): 9110-0124 kcal (23-25 kcal/kgBW), 58-73 gms pro (0.8-1.0 gms/kgBW d/t elev RFT). Will continue to monitor pertinent labs and reassess nutrient needs prn Labs: Gluc 114 H, Na 130 L, K 2.9 L, Ca 8.5 L, Tot shakila 1.6 H, AST 47 H,Tpro 8.7 H, Alb 3.1 L Skin: Reyes scale 21, low risk, skin intact per net mender. GI: Pt had 2x BM this morning per net mender. PES: Altered nutrition related lab values r/t current/chronic medical condition aeb elev RFT hyperbil, mod hypoalb, hypocalcemia Will continue to monitor PO intake, skin status, pertinent labs and weight trend. F/u in 3 to 5 days. Rec.: 1.) Continue close supervision with meals. 2.) Continue monitoring pertinent labs; If Albumin level continues trending down, consider Prostat 1 pkt BID. 3.) Refer pt to CDE/RD for further nutrition education and weight monitoring upon discharge. 4.) Continue current plan of care.
[2019-01-08 14:13] VITALS: BP 98/74
[2019-01-08 17:11] VITALS: BP 105/66
--- NOTE | 2019-01-08 19:45 | NUR ---
OPENING NOTES RECEIVED REPORT FROM DAY SHIFT NURSE. PT IS AWAKE AND ALERT X 4 WITH NO S/S OF DISTRESS NOR PAIN. BED IS IN LOWEST POSITION WITH BED BRAKES LOCKED. SIDE RAILS UP X 2 AND CALL LIGHT IS WITH IN REACH. WILL CONTINUE TO MONITOR Q 1 HR.
[2019-01-08 20:00] VITALS: BP 95/55
[2019-01-08] MEDS: ATORVASTATIN 20 MG TAB PO SCH (22:45)
[2019-01-09 04:35] VITALS: BP 103/73
[2019-01-09] MEDS: FUROSEMIDE 40 MG/4 ML VIAL IV SCH (05:26)
[2019-01-09 06:19] LABS: Basophils # (auto) 0.1 uL; Hemoglobin 12.9 g/dL (12.2-16.2); Lymphocytes # (auto) 1.2 uL; Neutrophils # (auto) 7.5 uL
[2019-01-09 06:21] LABS: Basophils % (auto) 1.1 % (0.0-2.0); Eosinophils # (auto) 0.2 uL; Eosinophils % (auto) 1.7 % (0.0-7.0); Hematocrit 39.3 % (36.0-46.0); Lymphocytes % (auto) 12.3 % (10.0-50.0); Mean Corpuscular Hemoglobin 26.4 pg (28.0-32.0); Mean Corpuscular Hgb Conc. 32.8 g/dL (32.0-36.0); Mean Corpuscular Volume 80.4 fL (80.0-100.0); Monocytes # (auto) 1.2 uL; Monocytes % (auto) 11.4 % (0.0-12.0); Neutrophils % (auto) 73.5 % (37.0-80.0); Nucleated Red Blood Cells % 0.1 %; Platelet Count (auto) 344 10^3/uL (140-450); Red Blood Cells 4.89 10^6/uL (4.0-5.20); Red Cell Distribution Width 19.5 % (11.8-14.3); White Blood Cell 10.2 10^3/uL (4.4-10.8)
[2019-01-09 06:41] LABS: Albumin 2.9 g/dL (3.4-5.0); BUN/Creatinine Ratio 29.2; Calcium 8.4 mg/dL (8.5-10.1); Potassium 3.5 mmol/L (3.5-5.1)
[2019-01-09 06:44] LABS: Bilirubin, Total 1.5 mg/dL (0.2-1.0); Total Protein 8.4 g/dL (6.4-8.2)
--- NOTE | 2019-01-09 08:09 | NUR ---
Dr Dustin cummings and per Dr Dustin gonzalez D/C patient home.
[2019-01-09] MEDS: MORPHINE SULFATE 4 MG/ML SYR/VIAL IV PRN (08:31)
[2019-01-09 09:25] VITALS: BP 117/73
--- NOTE | 2019-01-09 10:01 | NUR ---
Dr Chan paged and made aware that patient is CHF and has no AVRIL or ARB and following CHF protocol. Per Dr Chan no new orders and may D/C patient home.
--- NOTE | 2019-01-09 10:15 | NUR ---
Discharge instructions given as ordered. Encourage to follow up with MOUNA Chan as instructed. All questions and concerns addressed. Patient verbalized understanding. Medication reconciliation form completed and copy given to patient. IV removed with catheter intact, pressure dressing applied. Telemetry unit returned to [facility]. Patient taken to vehicle via wheelchair with all personal belongings, accompanied by staff and family member. No distress noted at time of departure.
--- NOTE | 2019-01-09 15:30 | NUR ---
Received call from patient's Daughter, Osimn and she was upset because pharmacy will not refill patient's RX. Informed her will call and see what is going on. Daughter Osmin [phone]
--- NOTE | 2019-01-09 15:49 | NUR ---
Spoke with patient's daughter, Osmin and made aware eran I spoke with Pharmacist at [facility] that Eliquis and K+ are ready to airport operations supervisor. Per Nafisa pharmacist will call [facility] to see why Plavix cannot be released stated that previously filled on 12/18/18. Per Osmin she did find Plavix bottle and patient has enough K+ pills, and Lasix pills as well. Daughter stated understanding of meds to be taken by patient.
== END 2019-01-09 10:15 | disposition home or self-care (01) | DRG 192 ==
LOC: EDBD 00:49 → EDUNIT# 00:49 → ER 00:53 → TELE 08:05 → TELE-WESTW 19:17
PROVIDERS: ADMIT Nurse Practitioner; ATTEND Internal Medicine
PROC: 4A023N7 Measurement of Cardiac Sampling and Pressure, Left Heart, Percutaneous Approach (ICD-10-PCS; principal; 2018-12-28)
PROC: B41C1ZZ Fluoroscopy of Pelvic Arteries using Low Osmolar Contrast (ICD-10-PCS; 2018-12-28)
PROC: B2111ZZ Fluoroscopy of Multiple Coronary Arteries using Low Osmolar Contrast (ICD-10-PCS; 2018-12-28)
PROC: B2151ZZ Fluoroscopy of Left Heart using Low Osmolar Contrast (ICD-10-PCS; 2018-12-28)
DX: I11.0 Hypertensive heart disease with heart failure (principal); I21.4 Non-ST elevation (NSTEMI) myocardial infarction; I26.99 Other pulmonary embolism without acute cor pulmonale; E66.01 Morbid (severe) obesity due to excess calories; J43.2 Centrilobular emphysema; I42.0 Dilated cardiomyopathy; K57.32 Diverticulitis of large intestine without perforation or abscess without bleeding; I50.9 Heart failure, unspecified; I50.82 Biventricular heart failure; Z95.810 Presence of automatic (implantable) cardiac defibrillator; J98.11 Atelectasis; F15.10 Other stimulant abuse, uncomplicated; E11.9 Type 2 diabetes mellitus without complications; E78.5 Hyperlipidemia, unspecified; F12.90 Cannabis use, unspecified, uncomplicated; F17.210 Nicotine dependence, cigarettes, uncomplicated; I70.0 Atherosclerosis of aorta; Z82.49 Family history of ischemic heart disease and other diseases of the circulatory system; Z82.61 Family history of arthritis; Z83.2 Family history of diseases of the blood and blood-forming organs and certain disorders involving the immune mechanism; Z91.19 Patient's noncompliance with other medical treatment and regimen; Z86.718 Personal history of other venous thrombosis and embolism; Z82.5 Family history of asthma and other chronic lower respiratory diseases; Z68.21 Body mass index [BMI] 21.0-21.9, adult; I25.110 Atherosclerotic heart disease of native coronary artery with unstable angina pectoris; Z98.51 Tubal ligation status
CPT/HCPCS: 36415; 71045; 71275; 75736; 80053; 80307; 80320; 81001; 83735; 83880; 84100; 84443; 84484; 85025; 85379; 85610; 85730; 87081; 93005; 93306; 93458; 93970; 96372; 96374; 96375; 97116; 97530; 99152; A6257; G0378; J2250; J2405; J3480